=== PATIENT | female | born 1985 | race Caucasian/White ===

== ENCOUNTER → 2016-10-22 | Outpatient (REF) | payer OTHER | LOC: M LAB REF 12:57 | PROVIDERS: ATTEND Obstetrics & Gynecology | DX: Z34.83 Encounter for supervision of other normal pregnancy, third trimester (principal); Z36 Encounter for antenatal screening of mother ==

== ENCOUNTER 2016-11-10 02:46 | Inpatient (IN) | payer OTHER ==
[~2016-11-10] VITALS: Ht 160 cm; Wt 85.0 kg
[2016-11-10] VITALS (34 sets, daily range): BP systolic 88–153; BP diastolic 48–93
[2016-11-10] MEDS ORDERED: LACTATED RINGER'S 1000 ML IV STA (03:12)
[2016-11-10] MEDS ORDERED: LR 1,000 ML IV SCH (03:12)
[2016-11-10 03:34] LABS: MEAN CORPUSCULAR HEMOGLOBIN 31.4 pg (27.0-33.0); MEAN CORPUSCULAR HGB CONC 34.6 g/dl (32.0-36.5); MEAN CORPUSCULAR VOLUME 90.8 fl (80.0-96.0); RED CELL DISTRIBUTION WIDTH 12.6 % (11.5-14.5); WHITE BLOOD COUNT 12.1 K/mm3 (4.0-10.0)
[2016-11-10] MEDS ORDERED: PRENTAB9 PO (04:05)
[2016-11-10] MEDS ORDERED: FENTANYL 2MCG/ML ROPIVACAINE 0.2% NACL 250 ML CADD As Ordered ONE (04:11)
[2016-11-10] MEDS ORDERED: FENTANYL/ROPIVACAINE/NACL CADD 250 ML EPIDURAL SCH (04:15)
[2016-11-10] MEDS ORDERED: REFRIGERATOR IV KEYS XX PRN (04:15)
[2016-11-10] MEDS ORDERED: EPIDURAL COMMENT XX SCH (04:15)
[2016-11-10] MEDS ORDERED: diphenhydrAMINE INJ 50MG/ML VIAL (J1200) IV PRN (04:15)
[2016-11-10] MEDS ORDERED: LACTATED RINGER'S 1000 ML IV PRN (04:15)
[2016-11-10] MEDS ORDERED: ePHEDrine SULFATE 25 MG/5 ML(5MG/ML) SYRINGE IV PRN (04:15)
[2016-11-10] MEDS ORDERED: EPIDURAL/PCA KEYS XX PRN (04:15)
[2016-11-10] MEDS ORDERED: NALOXONE INJ 0.4 MG/1 ML VIAL (J2310) IV PRN (04:15)
[2016-11-10] MEDS ORDERED: ONDANSETRON 4MG/2ML VIAL (J2405) IV PRN (04:15)
[2016-11-10] MEDS ORDERED: OXYTOCIN 30 UNITS IN 0.9% NaCl 500ML IV BAG (J2590) As Ordered ONE (05:57)
[2016-11-10] MEDS ORDERED: OXYTOCIN DRIP 30 UNITS in APPROPRIATE DILUENT 1 EA IV SCH ×2 (12:53→14:57)
[2016-11-10] MEDS ORDERED: DIBUCAINE 1% OINTMENT 30GM TOP PRN (13:00)
[2016-11-10] MEDS ORDERED: METHYLERGONOVINE MALEATE 0.2 MG TAB PO PRN (13:00)
[2016-11-10] MEDS ORDERED: ACETAMINOPHEN 500 MG TAB PO PRN (13:00)
[2016-11-10] MEDS ORDERED: MEASLES,MUMPS,RUBELLA VACCINE INJ (MMR-II) (90707) SC SCH (13:00)
[2016-11-10] MEDS ORDERED: RHOGAM 300 MCG (1500 IU) INJ (J2790) IM SCH (13:00)
[2016-11-10] MEDS ORDERED: MOM 30ML SUSPENSION UDC PO PRN (13:00)
--- NOTE | 2016-11-10 13:06 | DN ---
DATE OF DELIVERY: 11/10/2016 TIME OF : 12:14 GENDER: Female. SCORES: 9 and 9. WEIGHT: 3780 grams or 8 pounds 5 ounces. ESTIMATED BLOOD LOSS: Was 300 mL. ANESTHESIA: Epidural. LACERATIONS: 2nd-degree midline laceration. COUNTS: Five laparotomy sponges accounted for prior to and after delivery. One sharp removed from delivery field. DELIVERY NOTE: On 11/10/2016, at 12:14, Ms. Sánchez, a 30-year-old, 1, now para 1, had a spontaneous vaginal delivery of a liveborn female infant, scores 9 and 9, weight 8 pounds 5 ounces or 3780 grams. Head was delivered right occipitoanterior (DEAN) followed by delivery of left anterior shoulder, right posterior shoulder, and corpus. The was passed to mother with a good cry. Cord was clamped times two and was cut by the father of the baby under my direction. Cord blood was obtained. Placenta was then drained and delivered grossly intact. A premix bag of 500 mL of normal saline with 30 units of Pitocin was bolused, along with uterine massage until the uterus was firm. On inspection, there was a 2nd-degree midline laceration, which was repaired with 3-0 Vicryl Rapide. Reinspection of the cervix, vagina, and perineum were grossly intact and hemostatic. Mother and baby recovering in stable condition. The couple has decided to name their daughter, Sean.
--- NOTE | 2016-11-10 14:18 | HPE ---
DATE OF ADMISSION: 11/10/2016 A 30-year-old 1, estimated date of delivery 11/19/2016, here at 38 weeks, 5 days with reports of contractions since 2300, loss of fluid upon arrival, bloody show was reported, last normal menstrual period 02/13/2016 for estimated due date (ИВАН) of 11/19/2016, sonogram at eight weeks confirmed the date. Anatomy scan within normal limits with exception of initially enlarged adrenal glands, referral to center showed normally sized adrenals and followup. ALLERGIES: PENICILLIN and AMOXICILLIN. MEDICAL/SURGICAL HISTORY: Abnormal Pap. FAMILY HISTORY: Essential tremors. SOCIAL HISTORY: . Father of the baby present and supportive. Denies tobacco, alcohol or drugs. OBJECTIVE: Prepregnancy weight 153, total weight gain 44 pounds. O+, antibody negative, rubella immune, Pap normal in 2016. VDRL, hepatitis B, hepatitis C, HIV, gonorrhea and Chlamydia all negative. Quad screen within normal limits. One-hour glucose 146. Three-hour glucose tolerance test (GTT) 78, 138, 128 and 119. Group B Streptococcus is negative. Vital signs are stable. She is breathing with contractions. Heart rate is regular. Abdomen is soft, gravid, longitudinal lie. Contractions 2-3 minutes apart, 45-60 seconds, moderate, heart 135, moderate variability with accelerations. Sterile vaginal examination: 7 cm, 100% effaced, 0 station, clear fluid with moderate bloody show, cephalic. ASSESSMENT: [place] at term, active labor, category 1 tracing. PLAN: Admit. Patient desires epidural. Anticipate normal spontaneous vaginal .
[2016-11-10] MEDS: IBUPROFEN 800 MG TAB PO PRN (14:24)
[2016-11-10] MEDS: PRENATAL VITAMIN TAB PO SCH (16:32)
[2016-11-10] MEDS: DOCUSATE SODIUM 100 MG CAP PO PRN (20:56)
[2016-11-11] MEDS: IBUPROFEN 800 MG TAB PO PRN ×3 (00:32→19:37)
[2016-11-11 06:06] VITALS: BP 135/77
[2016-11-11] MEDS: PRENATAL VITAMIN TAB PO SCH (08:47)
[2016-11-11 18:14] VITALS: BP 127/77
[2016-11-11] MEDS: DOCUSATE SODIUM 100 MG CAP PO PRN (19:37)
[2016-11-12 06:15] VITALS: BP 141/86
[2016-11-12] MEDS: IBUPROFEN 800 MG TAB PO PRN (06:48)
[2016-11-12] MEDS: PRENATAL VITAMIN TAB PO SCH (07:45)
[2016-11-12] MEDS: DOCUSATE SODIUM 100 MG CAP PO PRN (07:46)
[2016-11-12] MEDS ORDERED: ACET50TA PO (09:32)
[2016-11-12] MEDS ORDERED: IBUP-1114 PO (09:33)
== END 2016-11-12 11:00 | disposition home or self-care (01) | DRG 775 ==
LOC: M LDO 02:46 → M LDI 03:11 → M OBS 15:20
PROVIDERS: ADMIT Advanced Practice Midwife; ATTEND Advanced Practice Midwife
PROC: 10E0XZZ Delivery of Products of Conception, External Approach (ICD-10-PCS; principal; 2016-11-10)
PROC: 0KQM0ZZ Repair Perineum Muscle, Open Approach (ICD-10-PCS; 2016-11-10)
DX: O70.1 Second degree perineal laceration during delivery (principal); Z37.0 Single live birth; Z3A.38 38 weeks gestation of pregnancy; Z88.0 Allergy status to penicillin; Z88.1 Allergy status to other antibiotic agents

== ENCOUNTER → 2018-03-28 | Outpatient (CLI) | payer OTHER ==
[2018-03-28 16:15] LABS: BASO % 0.5 % (0.0-1.0); EOS # 0.1 10^3/uL (0.0-0.50); EOS % 1.7 % (0.0-3.0); HEMATOCRIT 36.3 % (36.0-47.0); HEMOGLOBIN 12.3 g/dl (12.0-15.5); IMMATURE GRANULOCYTE % 0.4 % (0-3.0); LYMPH # 2.4 10^3/uL (1.5-4.5); MEAN CORPUSCULAR HGB CONC 33.9 g/dl (32.0-36.5); MEAN CORPUSCULAR VOLUME 88.5 fl (80.0-96.0); MONO # 0.6 10^3/uL (0.0-0.8); MONO % 7.1 % (0.0-5.0); NEUTROPHILS # 5.1 10^3/uL (1.8-7.7); NEUTROPHILS % 61.3 % (36.0-66.0); PLATELET COUNT, AUTOMATED 257 10^3/uL (150-450); RED CELL DISTRIBUTION WIDTH 11.9 % (11.5-14.5); WHITE BLOOD COUNT 8.3 10^3/uL (4.0-10.0)
[2018-03-28 18:01] LABS: CHLAMYDIA DNA AMPLIFICATION NEGATIVE (NEGATIVE); GC DNA AMPLIFICATION NEGATIVE (NEGATIVE)
[2018-03-30 11:37] LABS: RUBELLA IgG QUALITATIVE IMMUNE (IMMUNE)
[2018-03-30 11:45] LABS: HBsAg Prenatal NEGATIVE (NEGATIVE)
[2018-03-30 12:06] LABS: HEPATITIS C VIRUS ABY INDEX 0.1 INDEX (<0.8)
[2018-03-30 12:06] LABS: HIV 1&2 SCREEN CENTAUR NEGATIVE (NEGATIVE)
== END ==
LOC: M LRY 11:31
DX: Z34.81 Encounter for supervision of other normal pregnancy, first trimester (principal); Z3A.09 9 weeks gestation of pregnancy
CPT/HCPCS: 86762

== ENCOUNTER → 2018-04-27 | Outpatient (CLI) | payer OTHER | LOC: M LRY 13:45 | DX: Z34.81 Encounter for supervision of other normal pregnancy, first trimester (principal); Z36.89 Encounter for other specified antenatal screening | CPT/HCPCS: 36415 ==

== ENCOUNTER → 2018-06-03 | Outpatient (CLI) | payer OTHER | LOC: M RAD 16:23 | DX: Z36.9 Encounter for antenatal screening, unspecified (principal); Z3A.19 19 weeks gestation of pregnancy | CPT/HCPCS: 76811 ==

== ENCOUNTER → 2018-07-13 | Outpatient (CLI) | payer OTHER | LOC: M RAD 11:39 | DX: Z34.82 Encounter for supervision of other normal pregnancy, second trimester (principal); Z3A.23 23 weeks gestation of pregnancy | CPT/HCPCS: 76816 ==

== ENCOUNTER → 2018-08-02 | Outpatient (CLI) | payer OTHER ==
[2018-08-02 12:12] LABS: BASO % 0.5 % (0.0-1.0); EOS # 0.1 10^3/uL (0.0-0.50); EOS % 1.2 % (0.0-3.0); HEMATOCRIT 35.9 % (36.0-47.0); HEMOGLOBIN 11.9 g/dl (12.0-15.5); IMMATURE GRANULOCYTE % 0.8 % (0-3.0); LYMPH # 1.9 10^3/uL (1.5-4.5); LYMPH % 21.1 % (24.0-44.0); MEAN CORPUSCULAR HEMOGLOBIN 30.9 pg (27.0-33.0); MEAN CORPUSCULAR HGB CONC 33.1 g/dl (32.0-36.5); MEAN CORPUSCULAR VOLUME 93.2 fl (80.0-96.0); MONO # 0.4 10^3/uL (0.0-0.8); MONO % 4.9 % (0.0-5.0); NEUTROPHILS # 6.3 10^3/uL (1.8-7.7); NEUTROPHILS % 71.5 % (36.0-66.0); PLATELET COUNT, AUTOMATED 209 10^3/uL (150-450); RED BLOOD COUNT 3.85 10^6/uL (4.00-5.40); RED CELL DISTRIBUTION WIDTH 13.1 % (11.5-14.5); WHITE BLOOD COUNT 8.8 10^3/uL (4.0-10.0)
[2018-08-02 12:30] LABS: GLUCOSE CHALLENGE TEST 1 HOUR 148 MG/DL (LESS THAN 140)
== END ==
LOC: M LRY 08:43
DX: Z36.89 Encounter for other specified antenatal screening (principal)
CPT/HCPCS: 82950

== ENCOUNTER → 2018-08-17 | Outpatient (CLI) | payer OTHER ==
[2018-08-17 08:53] LABS: GLUCOSE, FASTING 85 MG/DL (LESS THAN 95)
[2018-08-17 11:03] LABS: 1 HR GLUCOSE 138 MG/DL (LESS THAN 180)
[2018-08-17 11:04] LABS: 2 HR GLUCOSE 135 MG/DL (LESS THAN 155)
[2018-08-17 12:15] LABS: 3 HR GLUCOSE 105 MG/DL (LESS THAN 140)
== END ==
LOC: M LAB 08:08
DX: Z34.83 Encounter for supervision of other normal pregnancy, third trimester (principal); Z3A.00 Weeks of gestation of pregnancy not specified
CPT/HCPCS: 82951

== ENCOUNTER → 2018-10-10 | Outpatient (REF) | payer OTHER ==
[~2018-10-10] MED LIST: IBUP-1114 PO; MAPA500T2 PO; PRENTAB9 PO
== END ==
LOC: M LAB REF 17:28
PROVIDERS: ATTEND Advanced Practice Midwife
DX: Z34.83 Encounter for supervision of other normal pregnancy, third trimester (principal); Z3A.00 Weeks of gestation of pregnancy not specified

== ENCOUNTER 2018-10-28 03:21 | Inpatient (IN) | payer OTHER ==
[2018-10-28] VITALS (22 sets, daily range): BP systolic 100–151; BP diastolic 56–91
[~2018-10-28] VITALS: Ht 160 cm; Wt 87.8 kg
[2018-10-28] MEDS ORDERED: LR 1,000 ML IV SCH (04:09)
[2018-10-28] MEDS ORDERED: LACTATED RINGER'S 1000 ML IV STA (04:09)
[2018-10-28 04:16] LABS: HEMATOCRIT 38.7 % (36.0-47.0); HEMOGLOBIN 13.1 g/dl (12.0-15.5); MEAN CORPUSCULAR HEMOGLOBIN 30.5 pg (27.0-33.0); MEAN CORPUSCULAR HGB CONC 33.9 g/dl (32.0-36.5); PLATELET COUNT, AUTOMATED 204 10^3/uL (150-450); WHITE BLOOD COUNT 10.4 10^3/uL (4.0-10.0)
[2018-10-28] MEDS ORDERED: FENTANYL 2MCG/ML ROPIVACAINE 0.2% IN 0.9% NACL 100ML IVBAG As Ordered ONE (04:29)
--- NOTE | 2018-10-28 04:30 | HPE ---
DATE OF ADMISSION: 10/28/2018 A 32-year-old G2 (), para (P) 1 female at 39-1/7 weeks by an eight week ultrasound with an estimated date of confinement (EDC) of 11/03/2018 presents with regular contractions every 2 to 3 minutes for the last hours. She had been katy at a less frequent interval for the last couple of hours. She denies vaginal bleeding or loss of fluid. COURSE: The patient initiated care at eight weeks gestation on 03/24/2018. Her first trimester blood pressure was 110/70. Her course was unremarkable. OBSTETRICAL HISTORY: October 2016 - a 38+ weeks vaginal delivery of an 8 pounds, 5 ounce male infant. No complications. PAST MEDICAL HISTORY: None. PAST SURGICAL HISTORY: None. ALLERGIES: PENICILLIN. SOCIAL HISTORY: The patient is . She denies cigarettes, alcohol or drug use. She lives in [place]. FAMILY HISTORY: Noncontributory. PHYSICAL EXAMINATION: VITAL SIGNS: Blood pressure 124/74, pulse 84. She appears uncomfortable. HEAD AND NECK: Exam normal. LUNGS: Clear. HEART: Regular rate and rhythm. ABDOMEN: Nontender and gravid. heart tones are category 1. STERILE VAGINAL EXAM: 6 cm, 100% effaced, -1 station, vertex, soft. LABORATORY DATA: Blood type is O positive, Rubella immune, RPR nonreactive. Hepatitis B and C negative. Human immunodeficiency virus (HIV) negative. Group B Streptococcus (GBS) negative on 10/10/2018. ASSESSMENT: A 32-year-old (G) 2, para (P) 1 female at 39-1/7 weeks gestation presents in active labor. PLAN: The patient is admitted on 10/28/2018.
[2018-10-28] MEDS ORDERED: ONDANSETRON 4MG/2ML VIAL (J2405) IV PRN (05:10)
[2018-10-28] MEDS ORDERED: FENTANYL/ROPIVACAINE/NACL BAG 100 ML EPIDURAL SCH (05:10)
[2018-10-28] MEDS ORDERED: ePHEDrine SULFATE 25 MG/5 ML(5MG/ML) SYRINGE IV PRN (05:10)
[2018-10-28] MEDS ORDERED: EPIDURAL COMMENT XX SCH (05:10)
[2018-10-28] MEDS ORDERED: diphenhydrAMINE INJ 50MG/ML VIAL (J1200) IV PRN (05:10)
[2018-10-28] MEDS ORDERED: EPIDURAL/PCA KEYS XX PRN (05:10)
[2018-10-28] MEDS ORDERED: NALOXONE INJ 0.4 MG/1 ML VIAL (J2310) IV PRN (05:10)
[2018-10-28] MEDS ORDERED: REFRIGERATOR IV KEYS XX PRN (05:10)
[2018-10-28] MEDS ORDERED: LACTATED RINGER'S 1000 ML IV PRN (05:10)
[2018-10-28] MEDS ORDERED: OXYTOCIN 30 UNITS IN 0.9% NaCl 500ML IV BAG (J2590) As Ordered ONE (05:24)
[2018-10-28] MEDS ORDERED: METHYLERGONOVINE MALEATE 0.2 MG TAB PO PRN (06:30)
[2018-10-28] MEDS ORDERED: DOCUSATE SODIUM 100 MG CAP PO PRN (06:30)
[2018-10-28] MEDS ORDERED: OXYTOCIN DRIP 30 UNITS in APPROPRIATE DILUENT 1 EA IV ONE (06:30)
[2018-10-28] MEDS ORDERED: RHOGAM 300 MCG (1500 IU) INJ (J2790) IM SCH (06:30)
[2018-10-28] MEDS ORDERED: DIBUCAINE 1% OINTMENT 30GM TOP PRN (06:30)
[2018-10-28] MEDS ORDERED: MEASLES,MUMPS,RUBELLA VACCINE INJ (MMR-II) (90707) SC SCH (06:30)
[2018-10-28] MEDS: IBUPROFEN 800 MG TAB PO PRN ×2 (09:33→17:22)
[2018-10-28] MEDS: PRENATAL VITAMINS CHEWABLE TABLET PO SCH (09:33)
[2018-10-28] MEDS: ACETAMINOPHEN 500 MG TAB PO PRN ×2 (12:29→20:05)
--- NOTE | 2018-10-28 16:53 | DN ---
DATE: 10/28/2018 PREDELIVERY DIAGNOSIS: A 39-1/7 weeks gestation, labor. POSTDELIVERY DIAGNOSIS: Delivered. PROCEDURE: Spontaneous vaginal delivery. GARMENT PATTERNMAKER: Dr. Marlon Alfred ANESTHESIA: Epidural. ESTIMATED BLOOD LOSS: 300 mL. FINDINGS: An 8-pound 2-ounce male infant, scores 9 and 9. DELIVERY SUMMARY: After 35-minute second stage, the patient had spontaneous delivery of an 8-pound 2-ounce male infant, scores 9 and d9, under epidural anesthesia. There was no nuchal cord. The shoulders delivered with ease. The infant cried immediately and was handed to the mother. The cord was doubly clamped and cut. Placenta delivered spontaneously and appeared to be intact. Patient received intravenous (IV) Pitocin immediately after delivery of the placenta. First-degree perineal laceration was repaired with 2-0 chromic in the usual fashion. Sponge and needle counts were correct. Parents chose to name the baby Brandon Ribera.
[2018-10-29] MEDS: IBUPROFEN 800 MG TAB PO PRN (03:24)
[2018-10-29 06:18] VITALS: BP 101/61
[2018-10-29] MEDS: PRENATAL VITAMINS CHEWABLE TABLET PO SCH (10:53)
[2018-10-29] MEDS: ACETAMINOPHEN 500 MG TAB PO PRN (10:53)
[2018-10-29] MEDS ORDERED: IBUP-1114 PO (11:00)
[2018-10-29] MEDS ORDERED: MAPA500T2 PO (11:00)
[2018-10-29] MEDS ORDERED: COLA100C5 PO (11:00)
== END 2018-10-29 11:35 | disposition home or self-care (01) | DRG 807 ==
LOC: M LDO 03:21 → M LDI 04:06 → M OBS 08:52
PROVIDERS: ADMIT Specialist; ATTEND Specialist
PROC: 10E0XZZ Delivery of Products of Conception, External Approach (ICD-10-PCS; principal; 2018-10-28)
PROC: 0HQ9XZZ Repair Perineum Skin, External Approach (ICD-10-PCS; 2018-10-28)
DX: O70.0 First degree perineal laceration during delivery (principal); Z37.0 Single live birth; Z3A.39 39 weeks gestation of pregnancy

== ENCOUNTER → 2019-04-26 | Outpatient (REF) | payer OTHER ==
[~2019-04-26] MED LIST changes: +COLA100C5 PO
[2019-04-26 16:38] LABS: CHLAMYDIA DNA AMPLIFICATION NEGATIVE (NEGATIVE); GC DNA AMPLIFICATION NEGATIVE (NEGATIVE)
== END ==
LOC: M LAB REF 13:21
PROVIDERS: ATTEND Advanced Practice Midwife
DX: Z11.3 Encounter for screening for infections with a predominantly sexual mode of transmission (principal)

== ENCOUNTER → 2019-07-28 | Outpatient (REF) | payer OTHER | LOC: M LAB REF 14:01 | PROVIDERS: ATTEND Advanced Practice Midwife | DX: Z12.4 Encounter for screening for malignant neoplasm of cervix (principal) | CPT/HCPCS: 87624; G0123 ==

== ENCOUNTER → 2019-08-05 | Outpatient (CLI) | payer OTHER ==
[~2019-08-05] MED LIST changes: +PRENTAB7 PO
--- NOTE | 2019-08-05 10:55 | REP ---
PELVIS SERIES: THREE VIEWS. HISTORY: Check IUD. Comparison pelvic sonography August 03, 2019 failed to identify an intrauterine device in the endometrium. FINDINGS: AP and bilateral oblique views of the pelvis demonstrate the intrauterine device in the central pelvis oriented horizontally with the arms of the T projecting to the left. Bowel gas pattern is normal. No bony abnormality is seen. Exam is otherwise unremarkable. IMPRESSION: The radiographs demonstrate the IUD in an atypical horizontal orientation in the central pelvis. Combined with absence of visualization of the IUD on ultrasound, the findings suggest that the IUD is outside of the uterus, in the cul-de-sac. Electronically Signed by Glenn Pittman MD 08/05/2019 05:00 P
== END ==
LOC: M RAD 10:05
PROVIDERS: ATTEND Advanced Practice Midwife
DX: Z30.431 Encounter for routine checking of intrauterine contraceptive device (principal); R10.2 Pelvic and perineal pain

== ENCOUNTER → 2019-08-16 | Day surgery (SDC) | payer OTHER ==
[~2019-08-16] VITALS: Ht 160 cm; Wt 75.7 kg
[~2019-08-16] MED LIST changes: +BUPIVACAINE HCL 0.25% 30 ML VIAL As Ordered ONE; +HYDROMORPHONE HCL 0.5 MG/ 0.5 ML SYRINGE (J1170 PER 1) IV PRN; +IBUP1TAB7 PO; +KETOROLAC 30 MG/ML VIAL (J1885) IV SCH; +KETOROLAC 60 MG/2 ML VIAL (J1885) As Ordered ONE; +LIDOCAINE 2% INJ 100 MG/5 ML SDV (FOR ANES.) As Ordered ONE; +LR 1,000 ML IV ONE; +LR 1,000 ML IV SCH; +METOCLOPRAMIDE INJ 10MG/2ML VIAL (J2765) As Ordered ONE; +MIDAZOLAM INJ 2 MG/2 ML VIAL (J2250) As Ordered ONE; +ONDANSETRON 4MG/2ML VIAL (J2405) As Ordered ONE; +ONDANSETRON 4MG/2ML VIAL (J2405) IV PRN; +OXYC1TAB23 PO; +PERCOCET 5MG/325MG TAB PO PRN; +PROPOFOL 200 MG/20 ML VIAL As Ordered ONE; +ROCURONIUM BROMIDE 50 MG/5 ML VIAL As Ordered ONE; +SUGAMMADEX SODIUM 500 MG/5 ML VIAL (BRIDION) As Ordered ONE; +dexameTHASONE 4 MG/ML 1ML VIAL (J1100) As Ordered ONE; +fentaNYL 100 MCG/2 ML INJECTION (J3010) As Ordered ONE; +fentaNYL 100 MCG/2 ML INJECTION (J3010) IV PRN
[2019-08-16 06:36] LABS: HEMATOCRIT 43.8 % (36.0-47.0); MEAN CORPUSCULAR HEMOGLOBIN 29.7 pg (27.0-33.0); PLATELET COUNT, AUTOMATED 228 10^3/uL (150-450); RED BLOOD COUNT 4.71 10^6/uL (4.00-5.40)
--- NOTE | 2019-08-16 08:42 | RO ---
DATE OF PROCEDURE: 08/16/2019 PREOPERATIVE DIAGNOSIS: Perforated intrauterine device. POSTOPERATIVE DIAGNOSIS: Perforated intrauterine device. PROCEDURE PERFORMED: Diagnostic operative laparoscopy with removal of perforated intrauterine device. SURGEON: Susana Camilo MD TENTER FEEDER: None. ANESTHESIA: General endotracheal anesthesia. ESTIMATED BLOOD LOSS: 5 mL. INTRAVENOUS FLUIDS: 1 liter of lactated Ringer's solution. URINE OUTPUT: 100 mL. PREOPERATIVE ANTIBIOTICS: None. INFECTION CLASSIFICATION: 1. OPERATIVE FINDINGS: Intrauterine device perforated, was found within the pelvis in the omentum. Otherwise normal appearing uterus and bilateral adnexa. INDICATIONS FOR OPERATION: This patient is a 33-year-old, 2, para 1, who presented for an annual exam, at which time, intrauterine device strings were not visualized. She had ultrasound and x-ray confirming perforated intrauterine device and has been consented for removal. DESCRIPTION OF OPERATION: After informed consent was obtaine, the patient was brought to the operating room where she was placed under general endotracheal anesthesia. She was then placed in lithotomy position and was prepped and draped in normal sterile fashion. A time out in the operating room was then performed identifying the patient, the procedure be performed, as well as, drug allergies. [place] speculum was placed revealing the cervix. The anterior lip of the cervix was grasped with a single tooth tenaculum. A [place] tenaculum was then advanced through the cervical os for means to manipulate the uterus. The single tooth tenaculum and speculum was then removed. Davila catheter was then placed and set to gravity. Gloves were changed. Attention was turned to the patient's abdomen where 0.25% Marcaine was infused in the umbilical region. Incision was made in this area and a 5 mm trocar and sleeve was advanced through this incision. The laparoscope was replaced revealing intra-abdominal placement. Pneumoperitoneum was then obtained with CO2 gas. The abdomen was surveyed with the above-noted findings. The intrauterine device was located in the lower pelvis attached to the omentum. A second port was placed 2 cm above the pubic symphysis in the midline. This area was infused with 0.25% Marcaine. Incision was made in this area and 5 mm trocar and sleeve was advanced through this incision under direct visualization. Grasper was then inserted. The intrauterine device was teased from the omentum and was removed intact. The omentum was inspected with hemostasis noted. The pneumoperitoneum was then released. The trocars were removed as well as instruments. The port sites were closed with #4-0 Monocryl. The wound was dressed with Dermabond. The [place]ul[place] tenaculum was removed. Tenaculum sites were noted be hemostatic. Davila catheter was removed. The patient was then taken out of lithotomy position, was awakened from with general anesthesia and taken to recovery in stable condition.
[2019-08-16 10:00] VITALS: BP 129/68
== END | disposition home or self-care (01) ==
LOC: M SDC 06:02
PROVIDERS: ATTEND Obstetrics & Gynecology
DX: T83.32XA Displacement of intrauterine contraceptive device, initial encounter (principal); X58.XXXA Exposure to other specified factors, initial encounter; Y93.9 Activity, unspecified; Y92.9 Unspecified place or not applicable; Y99.9 Unspecified external cause status; Z88.0 Allergy status to penicillin

== ENCOUNTER → 2021-02-28 | Outpatient (CLI) | payer OTHER ==
[~2021-02-28] MED LIST changes: -BUPIVACAINE HCL 0.25% 30 ML VIAL As Ordered ONE; -HYDROMORPHONE HCL 0.5 MG/ 0.5 ML SYRINGE (J1170 PER 1) IV PRN; -KETOROLAC 30 MG/ML VIAL (J1885) IV SCH; -KETOROLAC 60 MG/2 ML VIAL (J1885) As Ordered ONE; -LIDOCAINE 2% INJ 100 MG/5 ML SDV (FOR ANES.) As Ordered ONE; -LR 1,000 ML IV ONE; -LR 1,000 ML IV SCH; -METOCLOPRAMIDE INJ 10MG/2ML VIAL (J2765) As Ordered ONE; -MIDAZOLAM INJ 2 MG/2 ML VIAL (J2250) As Ordered ONE; -ONDANSETRON 4MG/2ML VIAL (J2405) As Ordered ONE; -ONDANSETRON 4MG/2ML VIAL (J2405) IV PRN; -PERCOCET 5MG/325MG TAB PO PRN; -PROPOFOL 200 MG/20 ML VIAL As Ordered ONE; -ROCURONIUM BROMIDE 50 MG/5 ML VIAL As Ordered ONE; -SUGAMMADEX SODIUM 500 MG/5 ML VIAL (BRIDION) As Ordered ONE; -dexameTHASONE 4 MG/ML 1ML VIAL (J1100) As Ordered ONE; -fentaNYL 100 MCG/2 ML INJECTION (J3010) As Ordered ONE; -fentaNYL 100 MCG/2 ML INJECTION (J3010) IV PRN
== END ==
LOC: M WHC 12:44
PROVIDERS: ATTEND Obstetrics & Gynecology
DX: Z34.82 Encounter for supervision of other normal pregnancy, second trimester (principal); Z3A.17 17 weeks gestation of pregnancy

== ENCOUNTER → 2021-03-10 | Outpatient (CLI) | payer OTHER ==
--- NOTE | 2021-03-10 11:18 | REP ---
INDICATION: 17 WEEKS GESTATION OF . COMPARISON: None. TECHNIQUE: Transabdominal obstetric sonography. FINDINGS: Scanning through the gravid uterus demonstrates a viable single intrauterine gestation in transverse lie. motion is observed and heart rate is recorded at 139 beats per minute. A anterior placenta is seen, grade 1, without evidence of placenta previa. Closed cervical length is measured at 5.4 cm transabdominally. No extrauterine abnormality is observed. Amniotic fluid is subjectively normal. No anomaly is seen. The following anatomic structures are identified and felt to be sonographically unremarkable: cranium, choroid plexus, cavum, cerebellum and posterior fossa, lungs, left and right ventricular outflow tract views, diaphragm, left-sided stomach, abdominal wall cord insertion, three-vessel umbilical cord, kidneys and bladder, spine, and upper and lower extremities. Facial profile and four-chamber heart views are less than optimally seen due to position. Biometry chart: BPD 4.7 cm, 20 weeks 1 day Head circumference 17.0 cm, 19 weeks 4 days Abdominal circumference 14.4 cm, 19 weeks 5 days Femur length 3.1 cm, 19 weeks 5 days Humeral length 2.9 cm, 19 weeks 4 days HC AC ratio normal 1.18 Cephalic index normal 0.78 Estimated weight 310 g, 0 lb 10 oz, 89th percentile for 18 weeks 6 days IMPRESSION: Viable single intrauterine gestation at 19 weeks 5 days by today's composite sonographic criteria. ИВАН by today's sonography July 30, 2021. No complication identified. anatomic survey less than complete as above. Expected gestational age estimate based on LMP 18 weeks 6 days ИВАН by LMP August 05, 2021 <Electronically signed by Ulysses Pittman > 03/10/21 [id number]
== END ==
LOC: M RAD 09:56
PROVIDERS: ATTEND Obstetrics & Gynecology
DX: Z34.82 Encounter for supervision of other normal pregnancy, second trimester (principal); Z3A.17 17 weeks gestation of pregnancy

== ENCOUNTER → 2021-04-29 | Outpatient (CLI) | payer OTHER ==
--- NOTE | 2021-04-29 16:45 | REP ---
INDICATION: F/U ANATOMY. PARTICULARLY THE FACIAL FEATURES AND FOUR-CHAMBER HEART COMPARISON: 03/10/2021 TECHNIQUE: Transabdominal scanning FINDINGS: Multiple ultrasonographic images of the gravid uterus shows a single living intrauterine gestation in the transverse head maternal left position. Doppler interrogation of the heart shows a heart rate of 146 beats per minute. The placenta is anterior and not low-lying. The cervix measures 6.4 cm in length and is closed. The subjective amniotic fluid volume is within normal limits. The calculated amniotic fluid index is 22.3 within expected range 9.5 to 22.6. BPD: 7.2 cm 28 weeks 5 days HC: 25.4 cm 27 weeks 4 days AC: 24.3 cm 28 weeks 4 days FL: 5.0 cm 27 weeks 0 days The estimated weight is 1154 g which is at the 65th percentile for a 26 week 6 day gestational age. Doppler interrogation of the umbilical artery shows an A\B ratio of 2.69. This is within the normal range. Four-chamber heart view is still suboptimally visualized. upper lip and facial profile were seen to be unremarkable. IMPRESSION: Single living intrauterine gestation as described above with an estimated gestational age of 27 weeks 5 days via composite criteria and an estimated date of delivery of 07/24/2021 by today's exam. No anomalies were detected, however, I recommend an additional follow-up examination to optimally visualize a four-chamber heart. <Electronically signed by Guillermo Nevarez > 04/29/21 [id number]
== END ==
LOC: M RAD 13:49
PROVIDERS: ATTEND Obstetrics & Gynecology
DX: Z36.9 Encounter for antenatal screening, unspecified (principal); Z3A.27 27 weeks gestation of pregnancy

== ENCOUNTER → 2021-04-29 | Outpatient (CLI) | payer OTHER ==
[2021-04-29 13:47] LABS: HEMATOCRIT 35.5 % (36.0-47.0); HEMOGLOBIN 11.3 g/dl (12.0-15.5); MEAN CORPUSCULAR HEMOGLOBIN 29.5 pg (27.0-33.0); MEAN CORPUSCULAR HGB CONC 31.8 g/dl (32.0-36.5); MEAN CORPUSCULAR VOLUME 92.7 fl (80.0-96.0); PLATELET COUNT, AUTOMATED 204 10^3/uL (150-450); RED BLOOD COUNT 3.83 10^6/uL (4.00-5.40); WHITE BLOOD COUNT 6.4 10^3/uL (4.0-10.0)
== END ==
LOC: M PLALAB 08:59
PROVIDERS: ATTEND Obstetrics & Gynecology
DX: Z34.92 Encounter for supervision of normal pregnancy, unspecified, second trimester (principal); Z3A.00 Weeks of gestation of pregnancy not specified

== ENCOUNTER → 2021-04-30 | Outpatient (REF) | payer OTHER | LOC: M SFHCWAGY 13:10 | PROVIDERS: ATTEND Advanced Practice Midwife | DX: N90.89 Other specified noninflammatory disorders of vulva and perineum (principal) ==

== ENCOUNTER → 2021-05-19 | Outpatient (CLI) | payer OTHER ==
--- NOTE | 2021-05-19 09:43 | REP ---
INDICATION: F/U ANATOMY HEART. COMPARISON: Comparison study April 29, 2021. TECHNIQUE: Transabdominal obstetric sonography. FINDINGS: Scanning through the gravid uterus demonstrates a viable single intrauterine gestation in breech lie. motion is observed and heart rate is recorded at 140 beats per minute. A anterior placenta is seen, grade 1, without evidence of placenta previa. Closed cervical length is measured at 5.0 cm transabdominally. No extrauterine abnormality is observed. Amniotic fluid is subjectively polyhydramnios. RIMA 28.9 cm (9.2-23.1 cm). Images of the four-chamber heart, left ventricular and right ventricular outflow tract views were obtained today and appear normal. Biometry chart: BPD 7.9 cm, 31 weeks 4 days Head circumference 29.6 cm, 32 weeks 5 days Abdominal circumference 27.8 cm, 31 weeks 6 days Femur length 5.9 cm, 30 weeks 6 days Humeral length 5.2 cm, 30 weeks 1 day HC AC ratio normal 1.06 Cephalic index normal 0.73 Estimated weight 1807 g, 3 lb 15 oz, greater than 97th percentile for 28 weeks 6 days IMPRESSION: Viable single intrauterine gestation at 31 weeks 3 days by today's composite sonographic criteria. ИВАН by today's sonography July 18, 2021. No complication identified. Expected gestational age estimate based on ИВАН of 08/05/2021 from prior sonography is 28 weeks 6 days. Estimated weight 97 percentile. In conjunction with prior study, anatomic survey is felt to be complete. There is evidence of polyhydramnios. <Electronically signed by Ulysses Pittman > 05/19/21 [id number]
== END ==
LOC: M WHC 08:59
PROVIDERS: ATTEND Advanced Practice Midwife
DX: Z34.83 Encounter for supervision of other normal pregnancy, third trimester (principal); Z3A.28 28 weeks gestation of pregnancy

== ENCOUNTER → 2021-06-19 | Outpatient (CLI) | payer OTHER ==
--- NOTE | 2021-06-19 09:06 | REP ---
INDICATION: BPP POLYHYDRAMNIOS AFFECTING IN 3 TRIMESTER. COMPARISON: Comparison study May 19, 2021. TECHNIQUE: Limited obstetric sonography, transabdominal scanning. FINDINGS: Scanning through the gravid uterus demonstrates a viable single intrauterine gestation in cephalic lie. motion is observed and heart rate is recorded at 146 beats per minute. A anterior placenta is seen, grade 1, without evidence of placenta previa. Closed cervical length is measured at 3.8 cm transabdominally. No extrauterine abnormality is observed. Amniotic fluid is subjectively polyhydramnios. RIMA 24.4 cm (8.2-24.6 cm).. Biophysical profile score 8 out of a possible 8. SD ratio in the umbilical cord artery by Doppler normal at 1.97. IMPRESSION: Polyhydramnios. Biophysical profile score 8 out of a possible 8. Limited Ob sonography. <Electronically signed by Ulysses Pittman > 06/19/21 0902
== END ==
LOC: M WHC 07:22
PROVIDERS: ATTEND Obstetrics & Gynecology
DX: O40.3XX0 Polyhydramnios, third trimester, not applicable or unspecified (principal); Z3A.00 Weeks of gestation of pregnancy not specified

== ENCOUNTER → 2021-06-26 | Outpatient (CLI) | payer OTHER ==
--- NOTE | 2021-06-26 08:15 | REP ---
INDICATION: BPP POLYHYDRAMNIOS AFFECTING IN 3RD TRI COMPARISON: 06/19/2021 TECHNIQUE: Transabdominal obstetrical ultrasound with color Doppler evaluation. FINDINGS: Examination demonstrates a single live intrauterine in cephalic presentation. motion is identified by technologist. Placenta is noted anterior and grade 1 without evidence for placenta previa or abruption. Amniotic fluid volume is upper limits of normal. Cervix measures 5.0 cm in length and appears closed.. Selected gestational age: 34 weeks 2 days with ИВАН 08/05/2021. FHR equals 139 beats per minute. RIMA: 22.6 (8.0-24.8) Umbilical artery SD ratio: 2.37 (1.72-3.65) Biophysical profile score: 8/8 IMPRESSION: Single live intrauterine in cephalic presentation. Biophysical profile score normal. Amniotic fluid volume is upper limits of normal range. <Electronically signed by Deep Munoz > 06/26/21 0645
== END ==
LOC: M WHC 07:26
PROVIDERS: ATTEND Obstetrics & Gynecology
DX: O40.3XX0 Polyhydramnios, third trimester, not applicable or unspecified (principal)

== ENCOUNTER → 2021-07-03 | Outpatient (REF) | payer OTHER | LOC: M SFHCWAGY 13:00 | PROVIDERS: ATTEND Advanced Practice Midwife | DX: Z34.83 Encounter for supervision of other normal pregnancy, third trimester (principal); Z3A.00 Weeks of gestation of pregnancy not specified ==

== ENCOUNTER → 2021-07-03 | Outpatient (CLI) | payer OTHER ==
--- NOTE | 2021-07-03 08:57 | REP ---
INDICATION: BPP, polyhydramnios AFFECTING . COMPARISON: 06/26/2021. TECHNIQUE: Real-time sonographic evaluation of the gravid uterus performed. FINDINGS: Estimated gestational age is35 weeks 2 days, EDC 08/05/2020. Today's measurements indicate appropriate growth. Presentation: Cephalic Placenta anterior, grade 1, without evidence of placenta previa. heart rate is recorded at 161 beats per minute. Amniotic fluid is subjectively normal. RIMA 21.2, normal range 7.8-24.9. Biophysical profile score 8/8. SD ratio umbilical artery 2.53, normal range 1.67-3.57. RI 0.60, normal range 0.46-0.72. Closed cervical length is measured at 4.3 cm. IMPRESSION: Viable single intrauterine gestation as above. <Electronically signed by Jonathan Galeano > 07/03/21 0854
== END ==
LOC: M WHC 07:32
PROVIDERS: ATTEND Obstetrics & Gynecology
DX: O40.3XX0 Polyhydramnios, third trimester, not applicable or unspecified (principal)

== ENCOUNTER → 2021-07-10 | Outpatient (CLI) | payer OTHER ==
--- NOTE | 2021-07-10 08:46 | REP ---
INDICATION: GROWTH BPP POLYHYDRAMNIOS AFFECTING COMPARISON: 07/03/2021 TECHNIQUE: Transabdominal obstetrical ultrasound with color Doppler evaluation. FINDINGS: Examination demonstrates a single live intrauterine in cephalic presentation. motion is identified by technologist. Placenta is noted anterior and grade 2 without evidence for placenta previa or abruption. Amniotic fluid volume is above normal limits and consistent with polyhydramnios. Cervix appears closed. Selected gestational age: 36 weeks 2 days with ИВАН 08/05/2021. Gestational age by current measurements 30 weeks 4 days with ИВАН 07/20/2021. FHR equals 160 beats per minute. Estimated weight 3570 grams (97thpercentile). RIMA: 29.9 cm (7.6-24.8) Biophysical profile score: 8/8 Umbilical artery SD ratio: 3.03 IMPRESSION: Single live advanced gestation in cephalic presentation. Polyhydramnios. Biophysical profile score: 8/8 <Electronically signed by Deep Munoz > 07/10/21 0842
== END ==
LOC: M WHC 07:23
PROVIDERS: ATTEND Obstetrics & Gynecology
DX: O40.3XX1 Polyhydramnios, third trimester, fetus 1 (principal)

== ENCOUNTER → 2021-07-17 | Outpatient (CLI) | payer OTHER ==
--- NOTE | 2021-07-17 13:14 | REP ---
INDICATION: BPP POLYHYDRAMNIOS AFFECTING . COMPARISON: 07/10/2021. TECHNIQUE: Real-time sonographic evaluation of gravid uterus performed. FINDINGS: There is a single living intrauterine gestation. The estimated gestational age is reportedly 37 weeks 2 days, EDC 08/05/2021. position cephalic. Placenta anterior and grade 2 with no previa. heart rate 143 beats per minute. There appears to be mild polyhydramnios. RIMA 26.0, normal 7.4-24.3. Biophysical profile score 8/8. SD ratio 2.33, normal 1.58-3.41. RI 0.57, normal 0.43-0.70. Cervix is closed and measures 3.2 cm in length. IMPRESSION: Biophysical profile score 8/8. <Electronically signed by Jonathan Galeano > 07/17/21 [id number]
== END ==
LOC: M WHC 07:27
PROVIDERS: ATTEND Obstetrics & Gynecology
DX: O40.3XX0 Polyhydramnios, third trimester, not applicable or unspecified (principal); Z3A.37 37 weeks gestation of pregnancy

== ENCOUNTER → 2021-07-24 | Outpatient (CLI) | payer OTHER ==
[~2021-07-24] MED LIST changes: +ACET-683 PO; +DEPO150I IM; +IBUP80TA PO; +TUMS750C5 PO
--- NOTE | 2021-07-24 10:27 | REP ---
INDICATION: BPP HYDRAMNIOS AFFECTING . COMPARISON: None. TECHNIQUE: Transabdominal scanning FINDINGS: Multiple ultrasonographic images of the gravid uterus shows a single living intrauterine gestation in the cephalic presentation. Doppler interrogation of the heart shows a heart rate of 134 beats per minute. The placenta is anterior not low lying. Secondary to the low position of the head an accurate cervical length measurement could not be obtained. The subjective amniotic fluid volume is increased. The calculated amniotic fluid index is 36.4 with an expected range of 7.3-23.5. biophysical profile score is 2 for breathing, 2 for movement, 2 for tone, and 2 for amniotic fluid volume giving a sum total of 8/8. Doppler interrogation of the umbilical artery shows an A\B ratio of 2.11. This is within the normal range. IMPRESSION: Limited OB ultrasound as described above. There is evidence of polyhydramnios. <Electronically signed by Guillermo Nevarez > 07/24/21 [id number]
== END ==
LOC: M WHC 07:30
PROVIDERS: ATTEND Obstetrics & Gynecology
DX: O40.3XX0 Polyhydramnios, third trimester, not applicable or unspecified (principal); Z3A.00 Weeks of gestation of pregnancy not specified

== ENCOUNTER 2021-07-27 05:58 | Outpatient (CLI) | payer OTHER ==
[~2021-07-27] VITALS: Ht 160 cm; Wt 100.3 kg
[~2021-07-27 05:58] MED LIST changes: -ACET-683 PO; -DEPO150I IM; -IBUP80TA PO; -TUMS750C5 PO
[2021-07-27 06:14] VITALS: BP 137/92
[2021-07-27] MEDS ORDERED: HOME MED LIST COMPLETE! XX SCH (06:20)
[2021-07-27 06:34] VITALS: BP 143/88
--- NOTE | 2021-07-27 08:14 | IPNPDOC ---
Obstetrical Progress Note Date of Service Jul 27, 2021 Subjective 35yo at 38+5 weeks EGA. Presents for a labor check. Reports uterine contractions every 15 minutes; mildly painful. No loss of fluid or vaginal bleeding. Reports regular, frequent movement. ROS: No JONAS, visual changes, RUQ pain, sob, cp, n/v/f/c. complications: polyhydramnios PMH: migraines,anxiety/depression, pes planus of the feet SH: IUD removal, bone graft, tooth extraction OB: Term x 2, both uncomplicated, largest 8lbs 5oz. [employer]: mild dysplasia Meds: PNV All: PCN O: Normotensive, normal HR, afebrile Abd: soft,nt,nd, no fundal tenderness SVE: 2-3 cm, 50 %, -3, cephalic, intact EFM: Cat I / Reactive [place]: no e/o active labor contraction pattern. A/P: 35 yo at 38+5 weeks EGA. Latent labor; no evidence of active labor or ROM. Reassuring maternal and status. -Routine third trimester precautions given. -Follow up in office as scheduled. IOL scheduled for 39+0 weeks for idiopathic mild polyhydramnios. Parish Crowley DO FACOG. Objective Vital Signs Date Time Temp Pulse Resp B/P (MAP) Pulse Ox O2 Delivery O2 Flow Rate FiO2 07/27/21 06:34 98 18 143/88 (106) 07/27/21 06:14 98.1 MALLORY CROWLEY DO Jul 27, 2021 08:14
[2021-07-27] MEDS ORDERED: TUMS750C5 PO (17:43)
== END 2021-07-27 08:15 | disposition home or self-care (01) ==
LOC: M LDO 05:58
PROVIDERS: ATTEND Obstetrics & Gynecology
DX: O60.03 Preterm labor without delivery, third trimester (principal); O40.9 Polyhydramnios, unspecified trimester; Z3A.38 38 weeks gestation of pregnancy
CPT/HCPCS: 59025; G0378; G0463

== ENCOUNTER 2021-07-27 17:19 | Inpatient (IN) | payer OTHER ==
[2021-07-27] VITALS (21 sets, daily range): BP systolic 98–140; BP diastolic 58–82
[~2021-07-27] VITALS: Ht 160 cm; Wt 100.8 kg
[2021-07-27] MEDS ORDERED: LACTATED RINGER'S 1000 ML IV STA (17:36)
[2021-07-27] MEDS ORDERED: LIDOCAINE 1% MDV 20ML VIAL INFIL PRN (17:40)
[2021-07-27] MEDS ORDERED: OXYTOCIN DRIP 30 UNITS in IV 1 EA IV PRN (17:40)
[2021-07-27] MEDS ORDERED: CARBOPROST TROMETHAMINE 250 MCG/ML AMP IM PRN (17:40)
[2021-07-27] MEDS ORDERED: METHYLERGONOVINE MALEATE 0.2 MG/ML VIAL (J2210) IM PRN (17:40)
[2021-07-27] MEDS ORDERED: LR 1,000 ML IV SCH ×2 (17:40→21:35)
--- OUTSIDE RECORDS SUMMARY | 2021-07-27 17:40 | CCD ---
Author Author [facility] Organization [facility] Address Unknown Phone Unavailable Care Team Providers Care Jai Alai Player Name Role Phone Frieda Peralta Unavailable PROBLEMS Type Condition ICD9-CM Code [id number] Code Onset Dates Condition S tatus W/U Status Risk SNOMED Code Notes Problem Numbness of left foot R20.8 Active confirmed 585943604 Problem Supervision of other normal Z34.80 Ac tive confirm 274488265 Problem Pes planus of both feet 734 Active confirmed 73276108 Problem Benign essential tremor 333.1 Active confirmed 892942453 ALLERGIES Allergen (clinical drug ingredient) Drug/Non Drug Allergy do cumented on EMR Reaction Allergy Type Onset Date Status Penicillin (For Allergies Use Only) rash Drug Allerg y Active amoxicillin Amoxicillin([facility] Code:[address]-14) Rash Drug Aller gy Active ENCOUNTERS from 1986 to 2021-07-11 Encounter Location Date Provider Diagnosis [facility] [address] [place] [address] [place] [address] Jun, Frieda Peralta Polyhydramnios, t hird trimester, fetus 1 O40.3XX1 ; Uterine size-date discrepancy, third trimester O26.843 and 36 weeks gestation of Z3A.36 IMMUNIZATIONS Vaccine Route Administration Date Status TDAP 0.5mL Boostrix IM Intramuscular Jun 09, 2021 Administere d Influenza 6mo & up Fluzone IM Intramuscular Jun 26, 2021 Admi nistered Influenza 6mo & up Fluzone Unknown Jun 20, 2015 Admin istered Influenza 6mo & up Fluzone Unknown Jun 20, 2014 Admin istered SOCIAL HISTORY Tobacco Use: Social History Observation Description Date Details (start date - stop date) Never Smoker Sex Assigned At : Social History Observation Description Sex Assigned At Unknown Alcohol Screening: Question Answer Notes Did you have a drink containing alcohol in the past year? No Points 0 Interpretation Negative Tobacco Use: Question Answer Notes Are you a: never smoker REASON FOR REFERRAL No Information VITAL SIGNS Weight 221 lbs Jun, Height 63 in Jun, BMI 39.148 kg/m2 Jun, Blood pressure systolic 122 mm Hg Jun, Blood pressure diastolic 62 mm Hg Jun, MEDICATIONS Medication SIG (Take, Route, Frequency, Duration) Notes Start Da te End Date Status Plus 27-1 MG 1 tablet Orally Once a day for 30 day(s) Sep, Active Flonase 50 MCG/DOSE 2 sprays in each nostril Nasally Once a day for 30 day(s) Oct, Not-Taking Mucinex D 120-1200 MG 1 tablet as needed Orally every 12 hrs for 10 days Oct, Not-Taking Clindamycin Phosphate 1 % 1 application to affected ar eas on face Externally Twice a day for 30 day(s) Feb, Not-Ta [place] Vitamins 28-0.8 MG 1 tab(s) Orally daily for 90 Not-Taking Zithromax Z-Miguel* 250 MG 2 tablets on the first day, then 1 tablet daily for 4 days Orally Once a day for 5 day(s) Oct, Not-Taking Sertraline HCl 25 MG 1 tablet Orally Once a day for 90 day(s) May, Not-Taking NuvaRing 0.12-0.015 MG/24HR 1 ring Vaginal use for 3 w eeks then remove week of period for 84 Not-Taking Spironolactone 25 MG 1 tablet Orally Twice a day for 90 day(s) Not-Taking Claritin 10 MG 1 tablet Orally Once a day Not-Taking PROCEDURES No Information RESULTS No Results REASON FOR VISIT 2 WK PN MEDICAL (GENERAL) HISTORY Type Description Date Medical History Migraine headache Medical History Pes planus of both feet Medical History Benign essential tremor Medical History anxiety /depression Surgical History IUD removal 07/2019 Surgical History bone graphing 2018 Surgical History tooth extraction 2018 Hospitalization History childbirth Hospitalization History surgery Goals Section No Information Health Concerns No Information MEDICAL EQUIPMENT No Information MENTAL STATUS No Information FUNCTIONAL STATUS No Information ASSESSMENTS Encounter Date Diagnosis Assessment Notes Treatment Notes Treatm ent Clinical Notes Jun, Uterine size-date discrepancy, third tri mester (ICD-10 - O26.843) Jun, Polyhydramnios, third trimester, fetus 1 (ICD-10 - O40.3XX1) Jun, 36 weeks gestation of (ICD-10 - Z3A.36 ) PLAN OF TREATMENT Next Appt Details 1 Week Reason:- Routine follow up Provider Name:Mima Herman, 2021-07-17 08:00:00 AM, [address] [place] [address], , [place], [address], Provider Name:Mima Herman, 2021-07-24 08:00:00 AM, [address] [place] [address], , [place], [address], Provider Name:Beckie Gore, 2021-07-21 1 08:00:00 AM, [address] [place] [address], , [place], [address], Follow Up:1 Week- Routine follow up Insurance Providers Payer Name Payer Address Payer Phone Insured Name Patient Relati onship to Insured Coverage Start Date Coverage End Date [facility] [address] [address] [facility] [phone] JESICA FREITAS self
--- OUTSIDE RECORDS SUMMARY | 2021-07-27 17:40 | CCD ---
Author Author [facility] Organization [facility] Address Unknown Phone Unavailable Care Team Providers Care Brass Plater Name Role Phone Virgil Mima Unavailable PROBLEMS Type Condition ICD9-CM Code [id number] Code Onset Dates Condition S tatus W/U Status Risk SNOMED Code Notes Problem Numbness of left foot R20.8 Active confirmed 079789222 Problem Supervision of other normal Z34.80 Ac tive confirm 630940485 Problem Pes planus of both feet 734 Active confirmed 91234592 Problem Benign essential tremor 333.1 Active confirmed 366834471 ALLERGIES Allergen (clinical drug ingredient) Drug/Non Drug Allergy do cumented on EMR Reaction Allergy Type Onset Date Status Penicillin (For Allergies Use Only) rash Drug Allerg y Active amoxicillin Amoxicillin([facility] Code:[address]-18) Rash Drug Aller gy Active ENCOUNTERS from 1986 to 2021-05-13 Encounter Location Date Provider Diagnosis [facility] [address] [place] [address] [place] [address] Apr, Mima Herman IMMUNIZATIONS Vaccine Route Administration Date Status Influenza 6mo & up Fluzone Unknown Jun [...] REASON FOR REFERRAL No Information VITAL SIGNS No information MEDICATIONS Medication SIG (Take, Route, Frequency, Duration) Notes Start Da te End Date Status NuvaRing 0.12-0.015 MG/24HR 1 ring Vaginal use for 3 w eeks then remove week of period for 84 Active Claritin 10 MG 1 tablet Orally Once a day Not-Taking Mucinex D 120-1200 MG 1 tablet as needed Orally every 12 hrs for 10 days Oct, Not-Taking Zithromax Z-Miguel* 250 MG 2 tablets on the first day, then 1 tablet daily for 4 days Orally Once a day for 5 day(s) Oct, Not-Taking Sertraline HCl 25 MG 1 tablet Orally Once a day for 90 day(s) May, Not-Taking Clindamycin Phosphate 1 % 1 application to affected ar eas on face Externally Twice a day for 30 day(s) Feb, Not-Ta [place] Vitamins 28-0.8 MG 1 tab(s) Orally daily for 90 Not-Taking Plus 27-1 MG 1 tablet Orally Once a day for 30 day(s) Sep, Active Spironolactone 25 MG 1 tablet Orally Twice a day for 90 day(s) Not-Taking Flonase 50 MCG/DOSE 2 sprays in each nostril Nasally Once a day for 30 day(s) Oct, Not-Taking PROCEDURES No Information RESULTS No Results REASON FOR VISIT lab results MEDICAL (GENERAL) HISTORY Type Description Date Medical [...] No Information FUNCTIONAL STATUS No Information ASSESSMENTS No Information PLAN OF TREATMENT Next Appt Details Provider Name:Mima Perez Virgil, 2021-05-29 11:20:00 AM, [address] [facility], , [place], [address], Insurance Providers Payer Name Payer Address Payer Phone Insured Name Patient Relati onship to Insured Coverage Start Date Coverage End Date [facility] [address] [address] [facility] [phone] JESICA FREITAS self
--- OUTSIDE RECORDS SUMMARY | 2021-07-27 17:40 | CCD ---
Author Author [facility] Organization [facility] Address Unknown Phone Unavailable Care Team Providers Care Fisher Trawl Line Name Role Phone AntolinBeckie Jama Unavailable PROBLEMS Type Condition ICD9-CM Code [id number] Code Onset Dates Condition S tatus W/U Status Risk SNOMED Code Notes Problem Numbness of left foot R20.8 Active confirmed 672492696 Problem Supervision of other normal Z34.80 Ac tive confirm 375500448 Problem Pes planus of both feet 734 Active confirmed 77171477 Problem Benign essential tremor 333.1 Active confirmed 321149293 ALLERGIES Allergen (clinical drug ingredient) Drug/Non Drug Allergy do cumented on EMR Reaction Allergy Type Onset Date Status Penicillin (For Allergies Use Only) rash Drug Allerg y Active amoxicillin Amoxicillin([facility] Code:[address]-22) Rash Drug Aller gy Active ENCOUNTERS from 1986 to 2021-06-25 Encounter Location Date Provider Diagnosis [facility] [phone] [place] [address] May, Beckie Gore Polyhydramnios affec ting in third trimester O40.3XX0 ; Large for gestational age fetus affecting mother, antepartum O36.60X0 ; 31 weeks gestation of Z3A.31 and Encounter for immunization Z23 IMMUNIZATIONS Vaccine Route Administration Date Status TDAP 0.5mL Boostrix IM Intramuscular Jun 09, 2021 Administere d Influenza 6mo & up Fluzone Unknown Jun [...] FOR REFERRAL No Information VITAL SIGNS Weight 211 lbs May, Height 63 in May, BMI 37.377 kg/m2 May, Blood pressure systolic 122 mm Hg May, Blood pressure diastolic 60 mm Hg May, MEDICATIONS Medication SIG (Take, Route, Frequency, Duration) Notes Start Da te End Date Status Sertraline HCl 25 MG 1 tablet Orally [...] a day for 5 day(s) Oct, Not-Taking Flonase 50 MCG/DOSE 2 sprays in each nostril Nasally Once a day for 30 day(s) Oct, Not-Taking Plus 27-1 MG 1 tablet Orally Once a day for 30 day(s) Sep, Active NuvaRing 0.12-0.015 MG/24HR 1 ring Vaginal use for 3 w eeks then remove week of period for 84 Not-Taking Spironolactone 25 MG 1 tablet Orally Twice a day for 90 day(s) Not-Taking Mucinex D 120-1200 MG 1 tablet as needed Orally every 12 hrs for 10 days Oct, Not-Taking Claritin 10 MG 1 tablet Orally Once a day Not-Taking PROCEDURES No Information RESULTS No Results REASON FOR VISIT 6 wk pn MEDICAL (GENERAL) HISTORY Type Description Date Medical [...] Notes Treatment Notes Treatm ent Clinical Notes May, Polyhydramnios affecting pre gnancy in third trimester (ICD-10 - O40.3XX0) May, Large for gestational age fe tus affecting mother, antepartum (ICD- 10 - O36.60X0) May, 31 weeks gestation of (ICD-10 - Z3A.31 ) May, Encounter for immunization (ICD-10 - Z23) PLAN OF TREATMENT Treatment Notes Test Name Order Date [facility] BPP W/O NON STRESS TEST 2021-06-09 Imm: Boostrix 0.5mL IM TDAP 2021-06-09 Next Appt Details 2 Weeks Reason: Provider Name:Frieda Peralta, 2021-06-26 08:40:00 AM, [address] [place] [address], [place], [place], [address] [place] [address], Provider Name:Frieda Peralta, 2021-07-10 08:00:00 AM, [address] [place] [address], [place], [place], [address] [place] [address], Provider Name:Mima Herman, 2021-07-17 08:00:00 AM, [address] [place] [address], [place], [address], Provider Name:Mima Herman, 2021-07-24 08:00:00 AM, [address] [place] [address], [place], [address], Provider Name:Beckie Gore, 2021-07-21 1 08:00:00 AM, [address] [place] [address], [place], [address], Follow Up:2 WeeksPrenatal Insurance Providers Payer Name Payer Address Payer Phone Insured Name Patient Relati onship to Insured Coverage Start Date Coverage End Date [facility] [address] [address] [facility] [id number] JESICA FREITAS self
--- OUTSIDE RECORDS SUMMARY | 2021-07-27 17:40 | CCD ---
Author Author [facility] Organization [facility] Address Unknown Phone Unavailable Care Team Providers Care Caser Up Name Role Phone Mima Herman Unavailable PROBLEMS Type Condition ICD9-CM Code [id number] Code Onset Dates Condition S tatus W/U Status Risk SNOMED Code Notes Problem Numbness of left foot R20.8 Active confirmed 822785919 Problem Supervision of other normal Z34.80 Ac tive confirm 083567007 Problem Pes planus of both feet 734 Active confirmed 70173116 Problem Benign essential tremor 333.1 Active confirmed 908379736 ALLERGIES Allergen (clinical drug ingredient) Drug/Non Drug Allergy do cumented on EMR Reaction Allergy Type Onset Date Status Penicillin (For Allergies Use Only) rash Drug Allerg y Active amoxicillin Amoxicillin([facility] Code:[address]-18) Rash Drug Aller gy Active ENCOUNTERS from 1986 to 2021-05-01 Encounter Location Date Provider Diagnosis [facility] [phone] [place] [address] Apr, Mima Herman Vulvar lesion N90.89 ; Maternal care for abnormality of vulva and perineum, first trimester O34.71 ; 26 weeks gestation of Z3A.26 and Encounter for supervision of normal in multig ravida in second trimester Z34.82 IMMUNIZATIONS Vaccine Route Administration Date Status Influenza [...] FOR REFERRAL No Information VITAL SIGNS Weight 203.0 lbs Apr, Height 63 in Apr, BMI 35.96 kg/m2 Apr, Blood pressure systolic 118 mm Hg Apr, Blood pressure diastolic 68 mm Hg Apr, MEDICATIONS Medication SIG (Take, Route, Frequency, Duration) [...] Information RESULTS No Results REASON FOR VISIT 4 wk pn MEDICAL (GENERAL) HISTORY Type Description [...] Notes Treatment Notes Treatm ent Clinical Notes Apr, Vulvar lesion (ICD-10 - N90.89) Apr, Maternal care for abnormalit y of vulva and perineum, first trimester (ICD-10 - O34.71) Apr, 26 weeks gestation of (ICD-10 - Z3A.26 ) Apr, Encounter for supervision of normal in multigravida in second trimester (ICD-10 - Z34.82) PLAN OF TREATMENT Treatment Notes Test Name Order Date VIRAL CULTURE 2021-04-30 [facility] OBS FOLLOW UP OR REPEAT 2021-04-30 Next Appt Details 4 Weeks Reason:PN Provider Name:Mima Herman, 2021-05-29 11:20:00 AM, [address] [facility], , [place], [address], Follow Up:4 WeeksPN Insurance Providers Payer Name Payer Address Payer Phone Insured Name Patient Relati onship to Insured Coverage Start Date Coverage End Date [facility] [address] [address] [facility] [phone] JESICA FREITAS self
--- OUTSIDE RECORDS SUMMARY | 2021-07-27 17:40 | CCD ---
Author Author [facility] Organization [facility] Address Unknown Phone Unavailable Care Team Providers Care [employer] Name Role Phone Virgil Mima Unavailable PROBLEMS Type Condition ICD9-CM Code [id number] Code Onset Dates Condition S tatus W/U Status Risk SNOMED Code Notes Problem Numbness of left foot R20.8 Active confirmed 596142654 Problem Supervision of other normal Z34.80 Ac tive confirm 789320772 Problem Pes planus of both feet 734 Active confirmed 73961838 Problem Benign essential tremor 333.1 Active confirmed 174982501 ALLERGIES Allergen (clinical drug ingredient) Drug/Non Drug Allergy do cumented on EMR Reaction Allergy Type Onset Date Status Penicillin (For Allergies Use Only) rash Drug Allerg y Active amoxicillin Amoxicillin([facility] Code:[address]-21) Rash Drug Aller gy Active ENCOUNTERS from 1986 to 2021-05-12 Encounter Location Date Provider Diagnosis [facility] [address] [place] [address] [place] [address] Apr, Mima Herman IMMUNIZATIONS Vaccine Route Administration [...] Information RESULTS No Results REASON FOR VISIT Lab Results MEDICAL (GENERAL) HISTORY Type Description Date Medical [...] Name:Mima Perez Virgil, 2021-05-29 11:20:00 AM, [address] [facility], , [place], [address], Insurance Providers Payer Name Payer Address Payer Phone Insured Name Patient Relati onship to Insured Coverage Start Date Coverage End Date [facility] [address] [facility] [phone] JESICA FREITAS self
--- OUTSIDE RECORDS SUMMARY | 2021-07-27 17:40 | CCD ---
Author Author [facility] Organization [facility] Address Unknown Phone Unavailable Support Name Relationship Address Phone WAYNE SANFORD Next Of Kin [address] [place] [address] [facility] Next Of Kin [address] [place] [address] INDIANRIV* Next Of Kin [address] [facility] [address] [place] [address] FERMIN FREITAS Next Of Kin [address] [place] [address] [facility] Next Of Kin [address] [place] [address] RAJ FREITAS Next Of Kin Unknown FERMIN FREITAS ECON [address] [place] [address] Unavailable Re-disclosure Warning The records that you are about to access may contain information from federally-assisted alcohol or drug abuse programs. If such information is present, then the following federally mandated warning applies: This information has been disclosed to you from records protected by federal confidentiality rules (42 CFR part 2). The federal rules prohibit you from making any further disclosure of this information unless further disclosure is expressly permitted by the written consent of the person to whom it pertains or as otherwise permitted by 42 CFR part 2. A general authorization for the release of medical or other information is NOT sufficient for this purpose. The Federal rules restrict any use of the information to criminally investigate or prosecute any alcohol or drug abuse patient.The records that you are about to access may contain highly sensitive health information, the redisclosure of which is protected by Article 27-F of the [facility] Public Health law. If you continue you may have access to information: Regarding HIV / AIDS; Provided by facilities licensed or operated by the [facility] Office of Mental Health; or Provided by the [facility] Office for People With Developmental Disabilities. If such information is present, then the following [facility] mandated warning applies: This information has been disclosed to you from confidential records which are protected by state law. State law prohibits you from making any further disclosure of this information without the specific written consent of the person to whom it pertains, or as otherwise permitted by law. Any unauthorized further disclosure in violation of state law may result in a fine or alf sentence or both. A general authorization for the release of medical or other information is NOT sufficient authorization for further disc losure. Encounters Encounter Providers Location Date Indications Data Source(s ) ( ESTOB) [facility] OB [address] [place] [address] 07/10/2021 12:00:00 AM EDT eCW1 ([facility]) ( COB) [facility] Complicated OB [address] [place] [address] 07/03/2021 12:00:00 AM EDT eCW1 ([facility]) ( ESTOB) [facility] OB [address] [place] [address] 06/09/2021 12:00:00 AM EDT eCW1 ([facility]) Unknown [address] [facility] [place] [address] 05/12/2021 12:00:00 AM EDT eCW1 ([facility]) Unknown [address] [facility] [place] [address] 05/05/2021 12:00:00 AM EDT eCW1 ([facility]) ( ESTOB) [facility] OB [address] [place] [address] 04/30/2021 12:00:00 AM EDT eCW1 ([facility]) ( ESTOB) [facility] OB [address] [place] [address] 04/01/2021 12:00:00 AM EDT eCW1 ([facility]) ( ESTOB) [facility] OB [address] [place] [address] 02/28/2021 12:00:00 AM EDT eCW1 ([facility]) ( ESTOB) [facility] [address] [place] [address] 01/28/2021 12:00:00 AM EDT eCW1 ([facility]) Unknown [address] [facility] [place] [address] 01/27/2021 12:00:00 AM EDT eCW1 ([facility]) Unknown [address] [facility] [address] 01/07/2021 12:00:00 AM EDT eCW1 ([facility]) ( ESTOB) [facility] [address] [place] [address] 01/01/2021 12:00:00 AM EDT eCW1 ([facility]) [facility] [address] [place] [address] 10/28/2020 12:00:00 AM EST eCW1 ([facility]) [facility] [address] [place] [address] 07/17/2020 12:00:00 AM EDT eCW1 ([facility]) Unknown [address] [facility] [place] [address] 07/15/2020 12:00:00 AM EDT [facility] Immunizations Vaccine Date Status Description Data Source(s) New in 2011. IIV4 06/26/2021 08:45:00 AM EDT completed eCW1 ([facility]) New in 2011. IIV4 06/26/2021 08:45:00 AM EDT completed eCW1 ([facility]) New in 2011. IIV4 06/26/2021 08:45:00 AM EDT completed eCW1 ([facility]) Tdap 06/09/2021 08:57:00 AM EDT completed e CW1 ([facility]) Tdap 06/09/2021 08:57:00 AM EDT completed e CW1 ([facility]) Tdap 06/09/2021 08:57:00 AM EDT completed e CW1 ([facility]) Tdap 06/09/2021 08:57:00 AM EDT completed e CW1 ([facility]) COVID-19 VACC, MRNA(PFIZER)/PF 05/05/2021 12:00:00 AM EDT completed [facility] COVID-19 VACCINE Pfizer 05/05/2021 12:00:00 AM EDT completed [facility] Vaccine Series Complete: YESThis Data wa s Submitted to [facility] Via [employer]. COVID-19 VACC, MRNA(PFIZER)/PF 04/14/2021 12:00:00 AM EDT completed [facility] COVID-19 VACCINE Pfizer 04/14/2021 12:00:00 AM EDT completed [facility] Vaccine Series Complete: NOThis Data was Submitted to [facility] Via [employer]. INFLUENZA VIRUS VACCINE QUADRIVALENT 2019- (6 MOS AN D UP) 06/29/2020 12:00:00 AM EDT completed [facility] Medications Medication Brand Name Start Date Product Form Dose Route Admi nistrative Instructions Pharmacy Instructions Status Indications Reaction Description Data Source(s) 27 mg iron- 1 mg 01/08/2021 12:00:00 AM EDT tablet 30 TAKE ONE TABLET BY MOUTH EVERY DAY TAKE ONE TABLET BY MOUTH EVERY DAY SOLD: 01/09/2021 [facility] 27 mg iron- 1 mg 01/08/2021 12:00:00 AM EDT tablet 30 TAKE ONE TABLET BY MOUTH EVERY DAY TAKE ONE TABLET BY MOUTH EVERY DAY SOLD: 04/14/2021 [facility] 27 mg iron- 1 mg 01/08/2021 12:00:00 AM EDT tablet 30 TAKE ONE TABLET BY MOUTH EVERY DAY TAKE ONE TABLET BY MOUTH EVERY DAY SOLD: 05/15/2021 [facility] 27 mg iron- 1 mg 01/08/2021 12:00:00 AM EDT tablet 30 TAKE ONE TABLET BY MOUTH EVERY DAY TAKE ONE TABLET BY MOUTH EVERY DAY SOLD: 06/17/2021 [facility] 27 mg iron- 1 mg 01/08/2021 12:00:00 AM EDT tablet 30 TAKE ONE TABLET BY MOUTH EVERY DAY TAKE ONE TABLET BY MOUTH EVERY DAY SOLD: 03/14/2021 [facility] 27 mg iron- 1 mg 01/08/2021 12:00:00 AM EDT tablet 30 TAKE ONE TABLET BY MOUTH EVERY DAY TAKE ONE TABLET BY MOUTH EVERY DAY SOLD: 02/06/2021 [facility] . UNIT 06/29/2020 12:00:00 AM EDT Injectable 1 AD MIN FEE ADMIN FEE SOLD: 06/29/2020 [facility] 27 mg iron- 1 mg 09/27/2019 12:00:00 AM EST tablet 30 TAKE 1 TABLET BY MOUTH ONCE DAILY TAKE 1 TABLET BY MOUTH ONCE DAILY SOLD: 08/18/2020 [facility] 27 mg iron- 1 mg 09/27/2019 12:00:00 AM EST tablet 30 TAKE 1 TABLET BY MOUTH ONCE DAILY TAKE 1 TABLET BY MOUTH ONCE DAILY SOLD: 09/19/2020 [facility] 0.12-0.015 mg/24 hr 08/31/2019 12:00:00 AM EST ring 3 INSERT 1 RING VAGINALLY LEAVE IN 3 WEEKS THEN REMOVE FOR 1 WEEK INSERT 1 RING VAGINALLY LEAVE IN 3 WEEKS THEN REMOVE FOR 1 WEEK SOLD: 06/27/2020 [facility] Insurance Providers Payer name Policy type / Coverage type Policy ID Covered republican ID Covered republican's relationship to kennedy Policy [place] Plan Information [facility] [id number] Self [id number] [facility] [id number] SP [id number] [facility] [id number] SP [id number] [facility] [id number] SP [id number] [facility] [id number] SP [id number] [facility] [id number] SP [id number] [facility] (HMO) [id number] Self [id number] [facility] [id number] SP [id number] [facility] [id number] SP [id number] Problems, Conditions, and Diagnoses Code Display Name Description Problem Type Effective Dates Data Source(s) Z34.80 care Supervision of other normal Janina hernandez 12/26/2020 12:00:00 AM EDT eCW1 ([facility]) Surgeries/Procedures No Information Results ID Date Data Source GROUP B STREP CULTURE 07/03/2021 12:00:00 AM EDT eCW1 ([facility]) Name Value Range Interpretation Code Description Data Winnie rce(s) Supporting Document(s) GROUP B STREP CULTURE eCW1 ([facility]) ID Date Data Source [id number] 09/30/2020 12:00:00 AM EST [facility] Name Value Range Interpretation Code Description Data Winnie rce(s) Supporting Document(s) SARS-CoV2 Rapid Antigen Negative [facility] This lab was ordered by [facility] and reported by [facility]. Procedure Social History Code Duration Value Status Description Data Source(s ) Smoking 07/21/2021 12:00:00 AM EDT Never Smoker completed Never S moker eCW1 ([facility]) Smoking 07/21/2021 12:00:00 AM EDT Never Smoker completed Never S moker eCW1 ([facility]) Smoking 07/10/2021 12:00:00 AM EDT Never Smoker completed Never S moker eCW1 ([facility]) Smoking 06/25/2021 12:00:00 AM EDT Never Smoker completed Never S moker eCW1 ([facility]) Smoking 04/30/2021 12:00:00 AM EDT Never Smoker completed Never S moker eCW1 ([facility]) Smoking 04/30/2021 12:00:00 AM EDT Never Smoker completed Never S moker eCW1 ([facility]) Smoking 04/30/2021 12:00:00 AM EDT Never Smoker completed Never S moker eCW1 ([facility]) Smoking 04/01/2021 12:00:00 AM EDT Never Smoker completed Never S moker eCW1 ([facility]) Smoking 02/28/2021 12:00:00 AM EDT Never Smoker completed Never S moker eCW1 ([facility]) Smoking 01/28/2021 12:00:00 AM EDT Never Smoker completed Never S moker eCW1 ([facility]) Smoking 01/01/2021 12:00:00 AM EDT Never Smoker completed Never S moker eCW1 ([facility]) Smoking 01/01/2021 12:00:00 AM EDT Never Smoker completed Never S moker eCW1 ([facility]) Vital Signs ID Date Data Source UNK Name Value Range Interpretation Code Description Data Source(s) Body weight 221 [lb_av] 221 [lb_av] eCW1 ([facility]) Body height 63 [in_i] 63 [in_i] eCW1 (On license of [facility]) Body mass index (BMI) [Ratio] 39.148 kg/m2 39.1 48 kg/m2 eCW1 ([facility]) Systolic blood pressure 122 mm[Hg] 122 mm[Hg] e CW1 ([facility]) Diastolic blood pressure 62 mm[Hg] 62 mm[Hg] eCW1 ([facility]) Body height 63 [in_i] 63 [in_i] eCW1 (On [facility] of [facility]) Body mass index (BMI) [Ratio] 38.723 kg/m2 38.7 23 kg/m2 eCW1 ([facility]) Systolic blood pressure 110 mm[Hg] 110 mm[Hg] e CW1 ([facility]) Diastolic blood pressure 66 mm[Hg] 66 mm[Hg] eCW1 ([facility]) Body weight 218.6 [lb_av] 218.6 [lb_av] eCW1 ([facility]) Body weight 211 [lb_av] 211 [lb_av] eCW1 ([facility]) Body height 63 [in_i] 63 [in_i] eCW1 (On license of [facility]) Body mass index (BMI) [Ratio] 37.377 kg/m2 37.3 77 kg/m2 W1 ([facility]) Systolic blood pressure 122 mm[Hg] 122 mm[Hg] e CW1 ([facility]) Diastolic blood pressure 60 mm[Hg] 60 mm[Hg] eCW1 ([facility]) Body weight 203.0 [lb_av] 203.0 [lb_av] eCW1 ([facility]) Body height 63 [in_i] 63 [in_i] eCW1 (On license of [facility]) Body mass index (BMI) [Ratio] 35.96 kg/m2 35.96 kg/m2 eCW1 ([facility]) Systolic blood pressure 118 mm[Hg] 118 mm[Hg] e CW1 ([facility]) Diastolic blood pressure 68 mm[Hg] 68 mm[Hg] eCW1 ([facility]) Body weight 195 [lb_av] 195 [lb_av] eCW1 ([facility]) Body height 63 [in_i] 63 [in_i] eCW1 (On license of [facility]) Body mass index (BMI) [Ratio] 34.543 kg/m2 34.5 43 kg/m2 eCW1 ([facility]) Systolic blood pressure 122 mm[Hg] 122 mm[Hg] e CW1 ([facility]) Diastolic blood pressure 74 mm[Hg] 74 mm[Hg] eCW1 ([facility]) Body weight 184 [lb_av] 184 [lb_av] eCW1 ([facility]) Body weight 83.46 kg 83.46 kg eCW1 ([facility] of [facility]) Body height 63 [in_i] 63 [in_i] eCW1 (On [facility] of [facility]) Body mass index (BMI) [Ratio] 32.59 kg/m2 32.59 kg/m2 eCW1 ([facility]) Systolic blood pressure 112 mm[Hg] 112 mm[Hg] e CW1 ([facility]) Diastolic blood pressure 74 mm[Hg] 74 mm[Hg] eCW1 ([facility]) Body weight 177 [lb_av] 177 [lb_av] eCW1 ([facility]) Body height 63 [in_i] 63 [in_i] eCW1 (On [facility] of [facility]) Body mass index (BMI) [Ratio] 31.35 kg/m2 31.35 kg/m2 eCW1 ([facility]) Systolic blood pressure 112 mm[Hg] 112 mm[Hg] e CW1 ([facility]) Diastolic blood pressure mm[Hg] eCW1 ([facility]) Body weight 174 [lb_av] 174 [lb_av] eCW1 ([facility]) Body height 63 [in_i] 63 [in_i] [facility] (On [facility] of [facility]) Body mass index (BMI) [Ratio] 30.823 kg/m2 30.8 23 kg/m2 [facility] ([facility]) Systolic blood pressure 122 mm[Hg] 122 mm[Hg] e CW1 ([facility]) Diastolic blood pressure 74 mm[Hg] 74 mm[Hg] [facility] ([facility])
--- OUTSIDE RECORDS SUMMARY | 2021-07-27 17:40 | CCD ---
Author Author [facility] Organization [facility] Address Unknown Phone Unavailable Care Team Providers Care Regulatory Attorney Name Role Phone Virgil Mima Unavailable PROBLEMS Type Condition ICD9-CM Code [id number] Code Onset Dates Condition S tatus W/U Status Risk SNOMED Code Notes Problem Numbness of left foot R20.8 Active confirmed 622168813 Problem Supervision of other normal Z34.80 Ac tive confirm 381452470 Problem Pes planus of both feet 734 Active confirmed 61785652 Problem Benign essential tremor 333.1 Active confirmed 752892782 ALLERGIES Allergen (clinical drug ingredient) Drug/Non Drug Allergy do cumented on EMR Reaction Allergy Type Onset Date Status Penicillin (For Allergies Use Only) rash Drug Allerg y Active amoxicillin Amoxicillin([facility] Code:[address]-69) Rash Drug Aller gy Active ENCOUNTERS from 1986 to 2021-07-21 Encounter Location Date Provider Diagnosis [facility] [phone] [place] [address] 14 Jun, 2021 Mima Virgil Encounter for superv ision of other normal , third trimester Z34.83 and 35 weeks gestation of Z3A.35 IMMUNIZATIONS Vaccine Route Administration Date Status TDAP [...] FOR REFERRAL No Information VITAL SIGNS Weight 218.6 lbs Jun, Height 63 in Jun, BMI 38.723 kg/m2 Jun, Blood pressure systolic 110 mm Hg Jun, Blood pressure diastolic 66 mm Hg Jun, MEDICATIONS Medication SIG (Take, Route, Frequency, Duration) Notes Start Da te End Date Status Vitamins 28-0.8 MG 1 tab(s) Orally daily for 90 Not-Taking Flonase 50 MCG/DOSE 2 sprays in each nostril Nasally Once a day for 30 day(s) Oct, Not-Taking Mucinex D 120-1200 MG 1 tablet as needed Orally every 12 hrs for 10 days Oct, Not-Taking Spironolactone 25 MG 1 tablet Orally Twice a day for 90 day(s) Not-Taking Sertraline HCl 25 MG 1 tablet Orally Once a day for 90 day(s) May, Not-Taking Zithromax Z-Miguel* 250 MG 2 tablets on the first day, then 1 tablet daily for 4 days Orally Once a day for 5 day(s) Oct, Not-Taking NuvaRing 0.12-0.015 MG/24HR 1 ring Vaginal use for 3 w eeks then remove week of period for 84 Not-Taking Clindamycin Phosphate 1 % 1 application to affected ar eas on face Externally Twice a day for 30 day(s) Feb, Not-Ta kiki Plus 27-1 MG 1 tablet Orally Once a day for 30 day(s) Sep, Active Claritin 10 MG 1 tablet Orally Once a day Not-Taking PROCEDURES No Information RESULTS Component Value Reference Range GROUP B STREP CULTURE Reviewed date:07/07/2021 11:35:15 Interpretation: Performing Lab:[facility], [facility] [address] [facility] [address] , ,[place] [address] REASON FOR VISIT 1WK PN MEDICAL (GENERAL) HISTORY Type Description Date Medical History Migraine headache Medical History Pes planus of both feet Medical History Benign essential tremor Medical History anxiety /depression Surgical History IUD removal 07/2019 Surgical History bone graphing 2019 Surgical History tooth extraction 2019 Hospitalization History childbirth Hospitalization History surgery Goals Section No Information Health Concerns No Information MEDICAL EQUIPMENT No Information MENTAL STATUS No Information FUNCTIONAL STATUS No Information ASSESSMENTS Encounter Date Diagnosis Assessment Notes Treatment Notes Treatm ent Clinical Notes Jun, Encounter for supervision of other normal , third trimester (ICD-10 - Z34.83) Jun, 35 weeks gestation of (ICD-10 - Z3A.35 ) PLAN OF TREATMENT Next Appt Details 1 Week Reason:PN Provider Name:Mima Herman, 2021-07-24 08:00:00 AM, [address] [place] [address], , [place], [address], Provider Name:Beckie Gore, 2021-07-21 1 08:00:00 AM, [address] [place] [address], , [place], [address], Follow Up:1 WeekPN Insurance Providers Payer Name Payer Address Payer Phone Insured Name Patient Relati onship to Insured Coverage Start Date Coverage End Date [facility] [address] [address] [facility] [id number] JESICA FREITAS self
--- OUTSIDE RECORDS SUMMARY | 2021-07-27 17:40 | CCD ---
Author Author [facility] Organization [facility] Address Unknown Phone Unavailable Care Team Providers Care Die Baker Name Role Phone Susana Camilo Unavailable PROBLEMS Type Condition ICD9-CM Code [id number] Code Onset Dates Condition S tatus W/U Status Risk SNOMED Code Notes Problem Numbness of left foot R20.8 Active confirmed 207600821 Problem Supervision of other normal Z34.80 Ac tive confirm 343195702 Problem Pes planus of both feet 734 Active confirmed 35841037 Problem Benign essential tremor 333.1 Active confirmed 181277371 ALLERGIES Allergen (clinical drug ingredient) Drug/Non Drug Allergy do cumented on EMR Reaction Allergy Type Onset Date Status Penicillin (For Allergies Use Only) rash Drug Allerg y Active amoxicillin Amoxicillin([facility] Code:[address]-38) Rash Drug Aller gy Active ENCOUNTERS from 1986 to 2021-07-25 Encounter Location Date Provider Diagnosis [facility] [address] [place] [address] [place] [address] January, Susana Camilo IMMUNIZATIONS Vaccine Route Administration Date Status TDAP [...] 1 tablet Orally Once a day Not-Taking Zithromax Z-Miguel* 250 MG 2 tablets on the first day, then 1 tablet daily for 4 days Orally Once a day for 5 day(s) Oct, Not-Taking Flonase 50 MCG/DOSE 2 sprays in each nostril Nasally Once a day for 30 day(s) Oct, Not-Taking Clindamycin Phosphate 1 % 1 application to affected ar eas on face Externally Twice a day for 30 day(s) Feb, Not-Ta kiki Mucinex D 120-1200 MG 1 tablet as needed Orally every 12 hrs for 10 days Oct, Not-Taking Sertraline HCl 25 MG 1 tablet Orally Once a day for 90 day(s) May, Not-Taking NuvaRing 0.12-0.015 MG/24HR 1 ring Vaginal use for 3 w eeks then remove week of period for 84 Not-Taking Spironolactone 25 MG 1 tablet Orally Twice a day for 90 day(s) Not-Taking Vitamins 28-0.8 MG 1 tab(s) Orally daily for 90 Not-Taking PROCEDURES No Information RESULTS No Results REASON FOR VISIT Update Demographics - Personal Info MEDICAL (GENERAL) HISTORY Type Description Date Medical [...] PLAN OF TREATMENT Next Appt Details Provider Name:Beckie Gore, 2021-07- 1 08:00:00 AM, [address] [facility], , [place], [address], Insurance Providers Payer Name Payer Address Payer Phone Insured Name Patient Relati onship to Insured Coverage Start Date Coverage End Date [facility] [address] [address] [facility] [id number] JESICA FREITAS self
[2021-07-27] MEDS ORDERED: TUMS750C5 PO (17:43)
[2021-07-27] MEDS ORDERED: HOME MED LIST COMPLETE! XX SCH (17:45)
[2021-07-27 18:05] LABS: HEMATOCRIT 39.5 % (36.0-47.0); HEMOGLOBIN 13.1 g/dl (12.0-15.5); MEAN CORPUSCULAR HEMOGLOBIN 29.5 pg (27.0-33.0); MEAN CORPUSCULAR HGB CONC 33.2 g/dl (32.0-36.5); PLATELET COUNT, AUTOMATED 243 10^3/uL (150-450); RED BLOOD COUNT 4.44 10^6/uL (4.00-5.40); WHITE BLOOD COUNT 9.3 10^3/uL (4.0-10.0)
[2021-07-27] MEDS ORDERED: diphenhydrAMINE 50MG/ML VIAL (J1200) IV PRN (18:40)
[2021-07-27] MEDS ORDERED: EPIDURAL COMMENT XX SCH (18:40)
[2021-07-27] MEDS ORDERED: REFRIGERATOR IV KEYS XX PRN (18:40)
[2021-07-27] MEDS ORDERED: LACTATED RINGER'S 1000 ML IV PRN (18:40)
[2021-07-27] MEDS ORDERED: NALOXONE INJ 0.4MG/1ML VIAL (J2310 PER 1MG) IV PRN (18:40)
[2021-07-27] MEDS ORDERED: EPIDURAL/PCA KEYS XX PRN (18:40)
[2021-07-27] MEDS ORDERED: ePHEDrine SULFATE 25 MG/5 ML(5MG/ML) SYRINGE IV PRN (18:40)
[2021-07-27] MEDS ORDERED: ONDANSETRON 4MG/2ML VIAL IV PRN ×2 (18:40→21:35)
[2021-07-27] MEDS ORDERED: FENTANYL/ROPIVACAINE/NACL BAG 100 ML EPIDURAL SCH (18:40)
[2021-07-27] MEDS ORDERED: FENTANYL 2MCG/ML ROPIVACAINE 0.2% IN 0.9% NACL 100ML IVBAG As Ordered ONE (18:43)
--- NOTE | 2021-07-27 19:56 | HPEPDOC ---
Obstetrical History & Physical General Date of Admission Jul 27, 2021 at 17:36 History of Present Illness 35-year-old G3, P2002 at 38+5 weeks gestation. Presents with frequent, painful uterine contractions over the past several hours. Denies any loss of fluid or vaginal bleeding. Reports regular movement. ROS: no JONAS, cp, sob, fever/chills/nausea/vomiting. course: Polyhydramnios PMH: migraines, pes planus(both feet), benign essential tremor, anxiety/depression SH: IUD removal, bone grafting, tooth extraction Meds: vitamin All: PCN SPANISH MEDICAL INTERPRETER: No STI or dysplasia OB: Term x 2, largest 8lbs 5oz Sochx: No tobacco, alcohol or drug use FamHx: essential tremor labs: Blood type O+, antibody screen negative, HepBsAg neg, HIV neg, rubella immune, Hep C antibody negative, RPR nonreactive, CT/GC neg, urine culture negative, 1 hour glucose challenge test 115, GBS negative imaging: no anomalies or placental abnormalities. EFW 3570g on 07/10/21. RIMA 36.4 Past Medical History Allergies Coded Allergies: Penicillins (Verified Allergy, Unknown, RASH, 08/09/19) amoxicillin (Verified Allergy, Unknown, rash, 07/27/21) Medications Scheduled Pnv No.95/Ferrous Fum/Folic AC ( Vitamins Tablet) 1 Each Tablet, 1 TAB PO DAILY Scheduled PRN Calcium Carbonate (Tums) 300 Mg Tab.chew, 1-2 TAB PO Q6HP PRN for INDIGESTION Physical Examination Physical Examination GENERAL: Alert and oriented times three. ABDOMEN: Gravid and non-tender to touch. FETUS: Is vertex (VTX) by sterile vaginal examination (SVE), fetus is vertex (VTX) by Flaco. HEART RATE: Regular rate and rhythm. LUNGS: Clear to auscultation (CTA). EXTREMITIES: No edema. No clonus. SVE: 8cm,100%,0 EFM: Cat I [place]: ctxs every 3-5 min. Vital Signs/I&O Vital Signs Date Time Temp Pulse Resp B/P (MAP) Pulse Ox O2 Delivery O2 Flow Rate FiO2 07/27/21 17:32 71 140/79 (99) Laboratory Data [facility] Laboratory Tests 2 07/27/21 17:41: Serology Scanned Report Hepatitis B Testing 07/27/21 17:46: Nucleated Red Blood Cells % (auto) 0.0 CBC/BMP Laboratory Tests 07/27/21 17:46 Assessment/Plan Assessment 35yo at 38+5 weeks. Active labor. Polyhydramnios. Reassuring maternal and status. Plan Admit and orient. Requirements Manager and consent. Labs and intravenous (IV) per unit protocol. Anesthesia notified of patient's request for epidural. MALLORY THOMPSON DO Jul 27, 2021 19:56
[2021-07-27] MEDS ORDERED: OXYTOCIN DRIP 30 UNITS in IV 1 EA IV SCH (21:35)
[2021-07-27] MEDS ORDERED: MEASLES,MUMPS,RUBELLA VACCINE INJ (MMR-II) (90707) SC SCH (21:35)
[2021-07-27] MEDS ORDERED: RHOGAM 300 MCG (1500 IU) INJ (J2790) IM SCH (21:35)
[2021-07-27] MEDS ORDERED: ACETAMINOPHEN TAB 650MG DOSE (2X325MG) PO PRN (21:35)
[2021-07-27] MEDS ORDERED: DIBUCAINE 1% OINTMENT 30GM TOP PRN (21:35)
--- NOTE | 2021-07-27 21:39 | DNPDOC ---
[facility] Delivery Note Delivery Note DATE OF DELIVERY: 07/27/2021 TIME OF DELIVERY: 2119 Spontaneous vaginal delivery at 38+5 weeks WEAVE DEFECT CHARTING CLERK: Dr. Shane Crowley DO FACOG ANESTHESIA: Epidural LACERATION: None ESTIMATED BLOOD LOSS: 200 mL. FINDINGS: Male , see [facility] for birthweight, Score 7 and 8. DELIVERY SUMMARY: The active phase and second stage of labor progressed in normal fashion. The head delivered in the QUINN position, and restituted LOT. No nuchal cord was noted. The anterior shoulder delivered with gentle downward guidance and the remainder of the body delivered with ease. The baby was placed on the patient's chest. Delayed cord clamping occurred for approximately 1 minute. The cord was then doubly clamped and cut. IV Pitocin was bolused to actively manage the third stage of labor. The placenta delivered intact without any difficulty within 10 minutes of delivery. The uterine fundus was noted to be firm and 2 cm below the umbilicus. The cervix, vagina, vulva and perineum were inspected. No laceration requiring repair. Excellent hemostasis was noted. Sponge, needle and instrument counts were correct per protocol. DO SHANT Jean Baptiste JONATHAN R. DO Jul 27, 2021 21:39
[2021-07-27] MEDS ORDERED: CALCIUM CARBONATE 500 MG CHEW U/D PO PRN (21:45)
[2021-07-27] MEDS: IBUPROFEN 800 MG TAB PO PRN (23:45)
[2021-07-27] MEDS: DOCUSATE SODIUM 100MG CAPSULE PO PRN (23:46)
[2021-07-28] MEDS: ACETAMINOPHEN 500 MG TAB PO PRN ×3 (04:50→20:38)
[2021-07-28 06:00] VITALS: BP 106/60
[2021-07-28] MEDS: PRENATAL VITAMINS CHEWABLE TABLET PO SCH (08:01)
[2021-07-28] MEDS: IBUPROFEN 800 MG TAB PO PRN ×2 (09:25→17:49)
--- NOTE | 2021-07-28 17:46 | IPNPDOC ---
Progress Note Date of Service: Jul 28, 2021 Day#: 1 Progress Note SUBJECT: Elisabeth is OBJECTIVE: VITAL SIGNS: Within normal limits, afebrile. Alert and oriented times three. Respiratory rate is regular without us of accessory muscles. Abdomen: Fundus firm at U. Soft, NTTP. Minimal lochia. ASSESSMENT: PLAN: 1. VS, I&O, 24H, Fishbone Vital Signs/I&O Vital Signs Date Time Temp Pulse Resp B/P (MAP) Pulse Ox O2 Delivery O2 Flow Rate FiO2 07/28/21 06:00 97.2 58 18 106/60 (75) 07/27/21 23:10 96 Room Air I&O- Last 24 Hours up to 6 AM 07/28/21 06:00 Intake Total 1800 ml Output Total 800 ml Balance 1000 ml Laboratory Data 24H LABS Laboratory Tests 2 07/27/21 17:41: Serology Scanned Report Hepatitis B Testing 07/27/21 17:46: Nucleated Red Blood Cells % (auto) 0.0, Syphilis Serology NONREACTIVE 07/27/21 20:20: Coronavirus (COVID-19)(PCR) NEGATIVE CBC/BMP Laboratory Tests 07/27/21 17:46 NANCY GAGNON CNM Jul 28, 2021 17:46
[2021-07-28 18:00] VITALS: BP 116/55
[2021-07-28] MEDS: DOCUSATE SODIUM 100MG CAPSULE PO PRN (20:36)
[2021-07-29] MEDS: IBUPROFEN 800 MG TAB PO PRN (06:06)
[2021-07-29 06:12] VITALS: BP 117/63
[2021-07-29] MEDS ORDERED: ACET-683 PO (08:51)
[2021-07-29] MEDS ORDERED: DEPO150I IM (08:51)
[2021-07-29] MEDS ORDERED: IBUP80TA PO (08:51)
[2021-07-29] MEDS ORDERED: COLA100C5 PO (08:51)
[2021-07-29] MEDS ORDERED: INFLUENZA QUADRIVALENT PF VACCINE 0.5ML SYRINGE IM ONE (09:00)
[2021-07-29] MEDS: PRENATAL VITAMINS CHEWABLE TABLET PO SCH (09:13)
[2021-07-29] MEDS: ACETAMINOPHEN 500 MG TAB PO PRN (09:13)
== END 2021-07-29 10:10 | disposition home or self-care (01) | DRG 807 ==
LOC: M LDO 17:19 → M LDI 17:36 → M OBS 23:02
PROVIDERS: ADMIT Obstetrics & Gynecology; ATTEND Obstetrics & Gynecology
PROC: 10E0XZZ Delivery of Products of Conception, External Approach (ICD-10-PCS; principal; 2021-07-27)
DX: O40.3XX0 Polyhydramnios, third trimester, not applicable or unspecified (principal); Z37.0 Single live birth; Z3A.38 38 weeks gestation of pregnancy

== ENCOUNTER → 2023-11-11 | Outpatient (REF) | payer BC ==
[~2023-11-11] MED LIST changes: +ACET-683 PO; +DEPO150I IM; +IBUP80TA PO; +TUMS750C5 PO
== END ==
LOC: M PLALAB 10:05
PROVIDERS: ATTEND Advanced Practice Midwife
DX: Z53.9 Procedure and treatment not carried out, unspecified reason (principal)

== ENCOUNTER → 2023-12-01 | Outpatient (CLI) | payer BC ==
[2023-12-01 11:14] LABS: HEMATOCRIT 39.9 % (36.0-47.0); HEMOGLOBIN 13.3 g/dl (12.0-15.5); MEAN CORPUSCULAR HEMOGLOBIN 30.1 pg (27.0-33.0); MEAN CORPUSCULAR HGB CONC 33.3 g/dl (32.0-36.5); MEAN CORPUSCULAR VOLUME 90.3 fl (80.0-96.0); PLATELET COUNT, AUTOMATED 248 10^3/uL (150-450); RED BLOOD COUNT 4.42 10^6/uL (4.00-5.40); WHITE BLOOD COUNT 7.2 10^3/uL (4.0-10.0)
[2023-12-01 11:54] LABS: HIV 1&2 SCREEN NEGATIVE (NEGATIVE)
[2023-12-01 12:02] LABS: HEPATITIS C VIRUS ABY INDEX 0.03 INDEX (<0.8)
[2023-12-01 12:14] LABS: GC DNA AMPLIFICATION NEGATIVE (NEGATIVE)
== END ==
LOC: M PLALAB 08:25
PROVIDERS: ATTEND Advanced Practice Midwife
DX: O09.529 Supervision of elderly multigravida, unspecified trimester (principal)

== ENCOUNTER → 2024-01-17 | Outpatient (CLI) | payer BC | LOC: M RAD 10:27 | PROVIDERS: ATTEND Advanced Practice Midwife | DX: Z34.92 Encounter for supervision of normal pregnancy, unspecified, second trimester (principal); Z3A.18 18 weeks gestation of pregnancy ==

== ENCOUNTER → 2024-03-08 | Outpatient (CLI) | payer BC ==
[2024-03-08 13:13] LABS: HEMATOCRIT 36.2 % (36.0-47.0); HEMOGLOBIN 11.7 g/dl (12.0-15.5); MEAN CORPUSCULAR HEMOGLOBIN 29.9 pg (27.0-33.0); MEAN CORPUSCULAR HGB CONC 32.3 g/dl (32.0-36.5); MEAN CORPUSCULAR VOLUME 92.6 fl (80.0-96.0); PLATELET COUNT, AUTOMATED 210 10^3/uL (150-450); RED BLOOD COUNT 3.91 10^6/uL (4.00-5.40); WHITE BLOOD COUNT 6.6 10^3/uL (4.0-10.0)
[2024-03-08 15:07] LABS: GC DNA AMPLIFICATION NEGATIVE (NEGATIVE)
== END ==
LOC: M PLALAB 08:25
PROVIDERS: ATTEND Obstetrics & Gynecology
DX: Z34.82 Encounter for supervision of other normal pregnancy, second trimester (principal); Z3A.00 Weeks of gestation of pregnancy not specified

== ENCOUNTER → 2024-03-15 | Outpatient (CLI) | payer BC | LOC: M RAD 07:56 | PROVIDERS: ATTEND Obstetrics & Gynecology | DX: O09.522 Supervision of elderly multigravida, second trimester (principal); Z3A.27 27 weeks gestation of pregnancy ==

== ENCOUNTER → 2024-05-18 | Outpatient (REF) | payer BC ==
[~2024-05-18] MED LIST changes: +BUSP1TAB PO; +CLAR10CA3 PO; +IBUP-1022 PO
== END ==
LOC: M SFHCWAGY 14:56
PROVIDERS: ATTEND Obstetrics & Gynecology
DX: Z34.83 Encounter for supervision of other normal pregnancy, third trimester (principal); R39.11 Hesitancy of micturition

== ENCOUNTER 2024-06-07 03:10 | Inpatient (IN) | payer BC ==
[~2024-06-07] VITALS: Ht 160 cm; Wt 99.1 kg
[2024-06-07] VITALS (29 sets, daily range): BP systolic 81–154; BP diastolic 46–93; O2SAT 98
[~2024-06-07 03:10] MED LIST changes: -BUSP1TAB PO; -CLAR10CA3 PO; -IBUP-1022 PO
[2024-06-07] MEDS ORDERED: METHYLERGONOVINE MALEATE 0.2MG/ML 1ML VIAL IM PRN (04:20)
[2024-06-07] MEDS ORDERED: CARBOPROST TROMETHAMINE 250 MCG/ML AMP IM PRN (04:20)
[2024-06-07] MEDS ORDERED: OXYTOCIN DRIP 30 UNITS in IV 1 EA IV PRN (04:20)
[2024-06-07] MEDS ORDERED: TRANEXAMIC ACID INJection 1,000 MG in NS 100 ML IV PRN (04:20)
[2024-06-07] MEDS ORDERED: CLAR10CA3 PO (04:36)
[2024-06-07] MEDS ORDERED: BUSP1TAB PO (04:36)
[2024-06-07] MEDS ORDERED: HOME MED LIST COMPLETE! XX SCH (04:40)
[2024-06-07 05:07] LABS: HEMATOCRIT 36.8 % (36.0-47.0); HEMOGLOBIN 12.3 g/dl (12.0-15.5); MEAN CORPUSCULAR HEMOGLOBIN 30.8 pg (27.0-33.0); MEAN CORPUSCULAR HGB CONC 33.4 g/dl (32.0-36.5); PLATELET COUNT, AUTOMATED 182 10^3/uL (150-450)
[2024-06-07 05:22] LABS: GLUCOSE,RANDOM 88 MG/DL (LESS THAN 200)
[2024-06-07] MEDS: LACTATED RINGER'S 1000 ML IV STA (05:28)
[2024-06-07] MEDS ORDERED: NALOXONE INJ 0.4MG/1ML VIAL IV PRN (05:35)
[2024-06-07] MEDS ORDERED: diphenhydrAMINE 50MG/ML VIAL IV PRN (05:35)
[2024-06-07] MEDS ORDERED: ONDANSETRON 4MG 2ML VIAL IV PRN (05:35)
[2024-06-07] MEDS ORDERED: EPIDURAL/PCA KEYS XX PRN (05:35)
[2024-06-07] MEDS: FENTANYL/ROPIVACAINE/NACL BAG 100 ML EPIDURAL SCH (06:42)
[2024-06-07] MEDS: LR 500 ML IV PRN (07:21)
[2024-06-07] MEDS: ePHEDrine SULFATE 25 MG/5 ML(5MG/ML) SYRINGE IVP PRN (07:21)
[2024-06-07] MEDS: OXYTOCIN DRIP 30 UNITS in IV 1 EA IV PRN (10:33)
[2024-06-07] MEDS ORDERED: METHYLERGONOVINE MALEATE 0.2 MG TAB PO PRN (10:50)
[2024-06-07] MEDS ORDERED: DIBUCAINE 1% OINTMENT 30GM TOP PRN (10:50)
[2024-06-07] MEDS ORDERED: RHO(D) IMMUNE GLOBULIN/MALTOSE 500MCG(2500IU)/2.2ML VIAL (WINRHO) IM SCH (10:50)
[2024-06-07] MEDS ORDERED: ACETAMINOPHEN TAB 650MG DOSE (2X325MG) PO PRN (10:50)
[2024-06-07 12:11] LABS: HEPATITIS C VIRUS ABY INDEX < 0.02 INDEX (<0.8)
[2024-06-07] MEDS: DOCUSATE SODIUM 100MG CAPSULE PO PRN (17:54)
[2024-06-07] MEDS: IBUPROFEN 600MG TAB PO PRN (17:54)
[2024-06-07] MEDS: ACETAMINOPHEN 500 MG TAB PO PRN (22:50)
[2024-06-08 06:00] VITALS: BP 108/68; O2SAT 98
[2024-06-08] MEDS: PRENATAL VITAMINS CHEWABLE TABLET PO SCH (08:30)
[2024-06-08] MEDS: IBUPROFEN 800 MG TAB PO PRN (08:31)
[2024-06-08] MEDS ORDERED: IBUP-1022 PO (11:05)
[2024-06-08] MEDS ORDERED: ACET-683 PO (11:05)
[2024-06-08] MEDS ORDERED: FLUZONE VACCINE TRIVALENT PF(2024-25) 0.5ML SYRINGE IM.IMMUN ONE (15:00)
[2024-06-09] MEDS ORDERED: MEASLES,MUMPS,RUBELLA VACCINE INJ (MMR-II) SC.IMMUN ONE (09:00)
== END 2024-06-08 14:13 | disposition home or self-care (01) | DRG 560 ==
LOC: M LDO 03:10 → M LDI 04:06 → M OBS 15:15
PROVIDERS: ADMIT Obstetrics & Gynecology; ATTEND Obstetrics & Gynecology
PROC: 10E0XZZ Delivery of Products of Conception, External Approach (ICD-10-PCS; principal; 2024-06-07)
DX: O80 Encounter for full-term uncomplicated delivery (principal); Z88.0 Allergy status to penicillin; Z37.0 Single live birth; Z3A.39 39 weeks gestation of pregnancy

== ENCOUNTER → 2024-08-15 | Outpatient (CLI) | payer BC ==
[~2024-08-15] MED LIST changes: +BUSP1TAB PO; +CLAR10CA3 PO; +IBUP-1022 PO
== END ==
LOC: M PLALAB 10:21
PROVIDERS: ATTEND Advanced Practice Midwife
DX: O92.79 Other disorders of lactation (principal)